=== PATIENT | female | born 1965 | race Asian ===

== ENCOUNTER 2016-07-08 13:36 | Observation (INO) | payer OTHER ==
[2016-07-08] VITALS (9 sets, daily range): BP systolic 139–211; BP diastolic 70–99; PULSE 75–84; RESP 16–22; O2SAT 97–100
[~2016-07-08] VITALS: Ht 144.8 cm; Wt 59.6 kg
--- NOTE | 2016-07-08 13:41 | ED.REPORT ---
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 She reports left side facial numbness and left leg weakness. Laborer Mine reports that the patient called her around 11:30, at which time she seemed confused. Upon her arrival at the patient's house, her son also endorsed confusion and they both convinced the patient to go immediately to the emergency room. Her friend took her BP prior to their departure, at which time it measured 180/110. On the way to the ER patient complained of dizziness, and a transient episode of chest tightness, though she admits that this has been occurring intermittently for the past week. Patient denies SOB, nausea, and vomiting. Nursing Notes Stated Complaint: HIGH BP/CHEST TIGHTNESS/NUMB ON LEFT SIDE FACE Nursing Notes Reviewed: Yes Allergies: Coded Allergies: No Known Allergies (Unverified Allergy, Unknown, 07/08/16) Scheduled Aspirin (Aspirin) 81 Mg Tablet 81 MG PO DAILY (Reported) Hydrochlorothiazide (Hydrochlorothiazide) 25 Mg Tablet 25 MG PO DAILY (Reported ) Metoprolol Succinate ER (Metoprolol Succinate ER) 25 Mg Tab.er.24h 25 MG PO HS ( Reported) Potassium Chloride (Potassium Chloride) 10 Meq Tab.er.prt 10 MEQ PO DAILY ( Reported) TAKE WITH FOOD General Time Seen by Provider: 13:41 Chief Complaint Weakness, Numbness, Confusion Left-sided, Face left, Leg left Hx Obtained From: Other family... (Friend) Arrived By: Walk-in Time last known well 11:30 today Sudden in Onset?: No Symptom Duration: Since onset Progression Since Onset: Rapidly improving Associated with: Denies: Nausea, Vomiting Pertinent Negative: Pt denies other symptoms Similar Sx Previous: No Risk Factors )( TPA Administration/Criteria Stroke Thrombolytic Therapy : TPA Considered: No Neurologist Contacted: Yes TPA Administered Intravenously: No, not indicated NIH Stroke Scale Level of Consciousness: Alert and responsive (0) Ask Month & Age: Both questions right (0) Open/Close Eyes/Hand Motor Grader Rough Grade: Performs both tasks (0) Horizontal EO Movements: None (0) Visual Cooper: No visual loss (0) Facial Palsy: Normal symmetry (0) Right Arm Motor Drift (10s): No drift 10 sec (0) Left Arm Motor Drift (10s): No drift 10 sec (0) Right Leg Motor Drift (5s): No drift 5 sec (0) Left Leg Motor Drift (5s): No drift 5 sec (0) Limb Ataxia FNF/Heel-Mejia: No ataxia (0) Sensation (Arms/Legs/Face): No sensory loss (0) Language Aphasia: No aphasia, normal (0) Dysarthria: No dysarthria, normal (0) Extinction/Inattention: No exctinct/inattent (0) NIHSS Score: 0 Time NIHSS Performed: 13:42 Date NIHSS Performed: July 08, 2016 Past Medical History Past Medical History Reports: Hypertension, Denies: Coronary artery disease, Hyperlipidemia Smoking History Never Smoker Social History Other Social History: Good social support Ambulatory Status Independent Review of Systems Respiratory: Denies: Non-productive cough, Shortness of breath Cardiovascular: Reports: Chest pain (Tightness) GI: Denies: Nausea, Vomiting Neurologic: Reports: Confusion, Focal weakness (Left Arm and Leg), Numbness ( Left Face), Denies: Change LOC, Headache, Slurred speech, Unable to speak, Vision change Complete sys rev & neg: except as marked. Physical Exam Initial Vital Signs Vital Signs (First) Date Time Temp Pulse Resp B/P Pulse Ox O2 Delivery O2 Flow Rate FiO2 07/08/16 13:47 75 16 211/94 100 Room Air 07/08/16 14:33 36.4 Initial VS: Reviewed Abdomen / GI: Soft, Non-tender, No guarding, No rebound, No distention Extremities: Vascular intact, Neuro intact, No swelling, No tenderness Skin: Warm, Dry, No cyanosis Psychiatric: Mood/affect normal, Behavior normal, Normal thought content General/Constitutional: Awake, Alert, Well developed, Well nourished Head / Eyes: Normocephalic, PERRL, EOMI Neck: Supple, Full range of motion, No swelling, Non-tender, No carotid bruit Respiratory / Chest: Breath sounds NL, Breath sounds = bilat, No respiratory distress, No rales, No rhonchi, No wheezing Cardiovascular: Heart rate NL, Regular rhythm, Heart sounds NL, Peripheral circulation NL Heart Sounds / Murmur: Positive: Murmur present... (holosystolic murmur left upper sternal border) Neurologic: Oriented X3, Speech NL, No motor deficits, No sensory deficits, CN II - XII intact See NIH Stroke Scale in the Risk section of this note. Interpretation & Diagnostics Lab Results Interpretation Result Diagram: 07/09/16 0415 07/10/16 0535 Test 07/08/16 14:00 07/08/16 14:15 07/08/16 14:26 Prothrombin Time 9.7sec (8.1-12.5) Prothromb Time International Ratio 0.91ratio Hold Poon Top Tube Received (Received) Urine Color Straw (YELLOW) Urine Appearance Hazy (CLEAR,HAZY) Urine pH 6.0 (5.0-8.0) Urine Specific [place] 1.005 (1.003-1.035) Urine Protein Negativemg/dL (NEG,TRACE) Urine Glucose (UA) Negativemg/dL (NEGATIVE) Urine Ketones Negativemg/dL (NEGATIVE) Urine Occult Blood Negative (NEGATIVE) Urine Nitrite Negative (NEGATIVE) Urine Bilirubin Negative (NEGATIVE) Urine Urobilinogen Normalmg/dL (NORMAL) Urine Leukocyte Esterase Negative (NEGATIVE) Urine RBC 0-2/hpf (0-2) Urine WBC 6-10/hpf (0-5) Urine Epithelial Cells Occasional/hpf (NONE-MOD) Urine Crystals None seen (NONE SEEN) Urine Bacteria Moderate/hpf (NONE-FEW) Urine Hyaline Casts None/lpf (NONE) Urine Granular Casts None seen (NONE SEEN) Urine Waxy Casts None seen (NONE SEEN) Urine Red Blood Cell Casts None seen (NONE SEEN) Urine White Blood Cell Casts None seen (NONE SEEN) Urine Mucus None seen (None Seen) Urine Trichomonas None seen (NONE SEEN) Urine Yeast None (NONE SEEN) Urinalysis Comment None Urine Culture Reflexed Indicated ECG Interpretation ECG Interpretation: Sinus rhythm, rate 82 T wave inversions in 3, avF Q waves in [address] depression in 2 Unchanged from previous Time: 14:16 Interpreted by: ED physician CT Head Interpretation IMPRESSION: 1. No acute intracranial abnormality. 2. Findings discussed with Dr. Sterling on 07.08.16 at 1359 hrs. This study fulfills neurological imaging criteria for inclusion or exclusion of acute stroke therapies based on available published neurological imaging guidelines. Dictated by: Jose Alejandro Wayne M.D. on 07/08/2016 at 13:57 Approved by: Jose Alejandro Wayne M.D. on 07/08/2016 at 14:01 Study: Head CT no contrast Interpretation / Wet Read by: Interpret - Radiologist Re-Eval/Medical Decision Med Decision/Clinical Course 60-year-old female history of hypertension presenting with left-sided chest pain, left facial numbness, left lower extremity weakness and confusion today. Code stroke was called on arrival. CT showed no hemorrhage. Her left facial numbness and left lower extremity weakness resolved almost immediately. I discussed with stroke neurology and thought not TPA candidate given likely not stroke. Blood pressure systolic was low 200s. All of these symptoms resolved. She did have some recurrent left-sided chest pain which resolved with nitroglycerin. Patient was admitted for chest pain ACS rule out and TIA-like symptoms. This all could be due to hypertensive emergency resolved. Re-Evaluation/Progress : Time of Eval: 14:39 Re-Evaluation/Progress Note: Patient's chest pain is resolved after NTG. Discussed resulted labs, and imaging results and need for admission. Patient is amenable to the plan. Return precautions given. All other questions addressed. Consultation #1: Referral / Consult Name: Julieth Hernandez MD Consulted With: Neurology Call Returned at: 14:07 Note: Agrees that CVA is unlikely. Patient is not a TPA candidate. Consultation #2: Referral / Consult Name: Mary Luna MD Consulted With: Cardiology Call Returned at: 14:42 Transmission Builder: Referred to other consult ([facility]) Consultation #3: Referral / Consult Name: Jorge Gamez MD Consulted With: Cardiology Call Returned at: 14:52 Note: Agrees to consult. Consultation #4: Referral / Consult Name: Jorge Gamez MD Consulted With: Cardiology Call Returned at: 15:07 Note: No ECG changes. Admit patient. Start heparin drip. If there is no troponin elveation throughout her hospitalization, perform echocardiogram and stress test. Counseled Regarding: Diagnosis, Lab results, Need for admission Patient Discharge & Departure Impression: Primary Impression: Chest pain Additional Impressions: UTI (urinary tract infection) Hypertensive emergency Altered mental status Left facial numbness Disposition: ADMITTED TO HOSPITAL Discharge Condition All VS Reviewed: Yes Condition: Stable Crit Care Except Billable Proc Time Spent: 30-74 minutes (47) Services Performed: Patient management by me, Time spent at bedside, Reviewing test results, Reviewing imaging, Discussing patient care, Documentation in record, Time with fam/surrogate Scribe Attestation Portions of this note were transcribed by Jolynn Carcamo. I, Dr. Sterling, personally performed the history, physical exam and medical decision-making; I reviewed and confirmed the accuracy of the information in the transcribed note. Signed by: Barbara Cortes, 07/08/2016 at 15:07 Keon Sterling MD July 08, 2016 13:41 JOLYNN CARCAMO July 08, 2016 13:50 Urine Hyaline Casts None/lpf (NONE) Urine Granular Casts None seen (NONE SEEN) Urine Waxy Casts None seen (NONE SEEN) Urine Red Blood Cell Casts None seen (NONE SEEN) Urine White Blood Cell Casts None seen (NONE SEEN) Urine Mucus None seen (None Seen) Urine Trichomonas None seen (NONE SEEN) Urine Yeast None (NONE SEEN) Urinalysis Comment None Urine Culture Reflexed Indicated ECG Interpretation ECG Interpretation: Sinus rhythm, rate 82 T wave inversions in 3, avF Q waves in [address] depression in 2 Unchanged from previous Time: 14:16 Interpreted by: ED physician CT Head Interpretation IMPRESSION: 1. No acute intracranial abnormality. 2. Findings discussed with Dr. Streling on 07.08.16 at 1359 hrs. This study fulfills neurological imaging criteria for inclusion or exclusion of acute stroke therapies based on available published neurological imaging guidelines. Dictated by: Jose Alejandro Wayne M.D. on 07/08/2016 at 13:57 Approved by: Jose Alejandro Wayne M.D. on 07/08/2016 at 14:01 Study: Head CT no contrast Interpretation / Wet Read by: Interpret - Radiologist Re-Eval/Medical Decision Re-Evaluation/Progress : Time of Eval: 14:39 Re-Evaluation/Progress Note: Patient's chest pain is resolved after NTG. Discussed resulted labs, and imaging results and need for admission. Patient is amenable to the plan. Return precautions given. All other questions addressed. Consultation #1: Referral / Consult Name: Julieth Hernandez MD Consulted With: Neurology Call Returned at: 14:07 Note: Agrees that CVA is unlikely. Patient is not a TPA candidate. Consultation #2: Referral / Consult Name: Mary Luna MD Consulted With: Cardiology Call Returned at: 14:42 Transmission Builder: Referred to other consult ([facility]) Consultation #3: Referral / Consult Name: Jorge Gamez MD Consulted With: Cardiology Call Returned at: 14:52 Note: Agrees to consult. Consultation #4: Referral / Consult Name: Jorge Gamez MD Consulted With: Cardiology Call Returned at: 15:07 Note: No ECG changes. Admit patient. Start heparin drip. If there is no troponin elveation throughout her hospitalization, perform echocardiogram and stress test. Counseled Regarding: Diagnosis, Lab results, Need for admission Patient Discharge & Departure Impression: Primary Impression: Chest pain Additional Impressions: UTI (urinary tract infection) Hypertensive emergency Altered mental status Left facial numbness Disposition: ADMITTED TO HOSPITAL Discharge Condition All VS Reviewed: Yes Condition: Stable Crit Care Except Billable Proc Time Spent: 30-74 minutes (47) Services Performed: Patient management by me, Time spent at bedside, Reviewing test results, Reviewing imaging, Discussing patient care, Documentation in record, Time with fam/surrogate Scribe Attestation Portions of this note were transcribed by Jolynn Carcamo. I, Dr. Sterling, personally performed the history, physical exam and medical decision-making; I reviewed and confirmed the accuracy of the information in the transcribed note. Signed by: Barbara Cortes, 07/08/2016 at 15:07 Keon Sterling MD July 08, 2016 13:41 JOLYNN CARCAMO July 08, 2016 13:50
[2016-07-08] MEDS ORDERED: HYDR25TA4 PO (14:01)
[2016-07-08] MEDS ORDERED: ASPI-973 PO (14:01)
[2016-07-08] MEDS ORDERED: POTA10TA38 PO (14:01)
[2016-07-08] MEDS ORDERED: METO25TA99 PO (14:01)
--- NOTE | 2016-07-08 14:02 | DRSVH ---
PROCEDURE: CT BRAIN (TPA) ([id number]) INDICATIONS: Stroke TECHNIQUE: Noncontrast 4.5 mm thick angled axial sections acquired from the foramen magnum to the vertex, with c oronal reformats. COMPARISON: None. FINDINGS: Image quality: Excellent. CSF spaces: Basal cisterns are patent. No extra-axial fluid collections. Ventricles are normal in size and shape. Brain: No midline shift. No intracranial masses or hemorrhage. Ro-white matter interface is norm al. Skull and face: Calvarium and visualized facial bones are intact, without suspicious lesions. Sinuses: Visualized sinuses and mastoids are clear. IMPRESSION: 1. No acute intracranial abnormality. 2. Findings discussed with Dr. Sterling on 07.08.16 at 1359 hrs. This study fulfills neurological imaging criteria for inclusion or exclusion of acute stroke therapie s based on available published neurological imaging guidelines. Dictated by: Jose Alejandro Wayne M.D. on 07/08/2016 at 13:57 Approved by: Jose Alejandro Wayne M.D. on 07/08/2016 at 14:01
[2016-07-08 14:10] LABS: BASOPHILS % (AUTO) 0.7 % (0-3); EOSINOPHILS % (AUTO) 2.4 % (0-5); MONOCYTES % (AUTO) 7.1 % (4-12); Mean Corpuscular Hemoglobin 29.4 pg (27.0-35.0); Mean Corpuscular Volume 83.6 fL (81-100); NEUTROPHILS % (AUTO) 49.7 % (40-74); Platelet Count 289 bil/L (150-400)
[2016-07-08 14:30] LABS: INR 0.91 ratio
[2016-07-08 14:40] LABS: APPEARANCE,URINE HAZY (CLEAR,HAZY); COLOR,URINE STRAW (YELLOW); OCCULT BLOOD,URINE NEGATIVE (NEGATIVE); UROBILINOGEN,URINE NORMAL (NORMAL)
[2016-07-08 14:40] LABS: TROPONIN T < 0.010 ug/L (0.0-0.011)
[2016-07-08] MEDS ORDERED: cefTRIAXone Inj 1,000 MG in Dextrose 5% Minibag Plus 50 ML IV ONE (14:55)
[2016-07-08] MEDS ORDERED: Heparin 5,000 Unit/mL Inj IVPUSH ONE (14:55)
[2016-07-08] MEDS ORDERED: Heparin 25K Unit/500mL 0.45 NS 25,000 UNIT in IV Premix 1 EACH IV ONE (14:55)
[2016-07-08] MEDS ORDERED: HEPARIN IV ONE (15:30)
[2016-07-08] MEDS ORDERED: SODIUM CHLORIDE 0.9% IV ONE (15:30)
[2016-07-08] MEDS ORDERED: Ondansetron 2 mg/mL 2 mL Inj IVPUSH PRN ×2 (15:40→16:30)
[2016-07-08] MEDS ORDERED: Heparin 25,000 UNIT in 0.45% Sodium Chloride 475 ML IV ONE (15:40)
[2016-07-08] MEDS ORDERED: Alum-Mag Hydrox-Simeth 30 mL Suspension PO PRN ×2 (15:40→16:30)
[2016-07-08] MEDS ORDERED: Polyethylene Glycol (PEG) 17 Gm Powder PO PRN (16:30)
--- NOTE | 2016-07-08 17:01 | NUR ---
Admit nurse note Admission assessment completed in the ER with assistance from . Pt. denies complaints presently. She states she had chest pressure, dizziness and L facial numbness which resolved with 1 nitroglycerine sublingually. Pt. was recently dx with htn and started meds only 1 week ago. She also c/o 2 months of coughing since a trip to the [facility]. NKA verified, Med history obtained based on med bottles. Report given to Ingris Lin.
[2016-07-08] MEDS ORDERED: Heparin 5,000 Unit/mL Inj IVPUSH PRN (17:25)
[2016-07-08] MEDS ORDERED: Heparin 25K Unit/500mL 0.45 NS 25,000 UNIT in IV Premix 1 EACH IV SCH (17:25)
--- NOTE | 2016-07-08 17:31 | NUR ---
Admit: Patient arrived from ER to [facility] @ 1715 via stretcher accompanied by friends and Admit RN. Alert & oriented, ambulated to BR, steady gait observed. Denies pain, nausea, states she is slightly lightheaded from laying down. Telemetry box #45 on, SR 74 per wind commissioning technician. Oriented to room and call light system, bed in low and locked position, bed rails up x2, non skid socks on for safety.
--- NOTE | 2016-07-08 19:20 | PCM.HPMED ---
Subjective Date of Service July 08, 2016 Primary Provider: Admitting Physician: Gilbert Cancino MD Primary Care Physician: Andriy Fong MD Attending Physician: Gilbert Cancino MD Chief Complaint: Chest pain and numbness of the left side of the face and left leg pain and/or weakness. History of Present Illness: The patient is a pleasant 50-year-old [place] female who began having symptoms 06/24/2016. She went to see Dr. Fong at the [facility] in [place] on . Patient's blood pressure at that time was 164/90. Patient was given metoprolol 25 mg by mouth every 24 hours at that time. Patient went grocery shopping next became dizzy and found that her blood pressure was 184/90. On 513 her blood pressure was 150/100. On 514 she was tired and was found that her blood pressure was 188/100 she then went to the [place] walk-in clinic and they found that her blood pressure was 190/100 tens EKG and blood tests and told her that she had not had a heart attack but told her to go the emergency room and showed the emergency room in [place] and her blood pressure was 204/ 100. Again they did blood tests and x-rays and they gave her a shot of hydralazine IV and her blood pressure went from 190 systolic to 162 systolic. Patient was given hydrochlorothiazide and was sent home to follow-up with her primary care physician. Patient followed up with her primary care physician and her blood pressure was okay. However yesterday she was resting at home so not working is taken the day of work off since 07/06/2015. Patient blood pressure was 168 yesterday and then today was systolic pressure was 173- 180. Her friend Margie is a nurse in [place] at [facility] after her Symptoms she was having and the patient stated she was having chest pain and tightness and dizziness. Patient friend Margie then drove her to [facility] emergency room were blood pressure was found to be 200/100. She complained of left-sided facial numbness and was thought to have left leg weakness. A "code stroke" was called and at that time all of her symptoms resolved. The stroke team at [facility] was contacted and they recommended no TPA therefore the patient was not given any TPA. Patient had an INH stroke scale performed at 1342 with the "code stroke" and the patient in H stroke score was 0.. Patient continued to have chest tightness and chest pain and she was given 1 sublingual nitroglycerin and this not only took care of her chest pain but her blood pressure normalized. An EKG was performed which showed some Q waves in II, III, and F aVF and T-wave inversion in II, III, and F aVF with questionable ST depression in lead [address] Keon Sterling. He reviewed the old EKG from November 2011 and found no significant difference. However, he also Sent the EKG from 2011 and recent EKG to Dr. Gamez, who Is the [employer] emission specialist and Dr. Gamez also agreed that there is no significant difference in comparing the old EKG with the new EKG. The patient had a negative troponin and all of her strokelike symptoms had resolved. Therefore, the patient was brought in under observation to the hospital service. Review of Systems: General: The patient is in no apparent distress. HEENT: Patient has no headache, patient has no diplopia, patient has no changes in vision. She wears glasses for reading Patient has no problems with her ears , nose or throat. Patient has upper and lower dentures and has had all of her teeth but removed. Patient has no pharyngitis or history of thrush. Patient's facial numbness has resolved. Neck: Patient has no stiffness in the neck. Patient has no lymphadenopathy. Patient has no other problems with their neck. Pulmonary: Patient has no shortness of breath, no cough, no expectoration of sputum. Patient has no pleurisy. Patient has no chest pain. Patient has no history of asthma or COPD. Cardiovascular: Patient has no chest pain since she took a few nitroglycerin in the emergency room. Please see the history of present illness. Patient has no history of heart murmur. Patient has no palpitations. Patient has no history of myocardial infarction. Patient has no history of coronary artery disease that she is aware of. Gastrointestinal: Patient has no history of hepatitis A, B or C. Patient has no history of peptic ulcer disease. Patient has no history of gastroesophageal reflux disease. Patient has no history of nausea, vomiting, or diarrhea. Patient has no history of hematemesis, hematochezia, or melena. Patient has no history of colitis. Renal: Patient has no history of kidney disease. No history of kidney stones. Genitourinary: Patient has no history of dysuria, frequency, or incontinence. Patient has no previous history of genitourinary problems. Musculoskeletal: Patient has no history of muscular skeletal problems. Neurologic: Patient has no history of stroke, no history of seizure, no history of TIA. Psychiatric: Patient has no history of psychiatric problems. The remainder of the entire review of systems was reviewed with patient and is as mentioned above otherwise negative. Allergies Coded Allergies: No Known Allergies (Unverified Allergy, Unknown, 07/08/16) Home Medications Scheduled Aspirin (Aspirin) 81 Mg Tablet 81 MG PO DAILY (Reported) Hydrochlorothiazide (Hydrochlorothiazide) 25 Mg Tablet 25 MG PO DAILY (Reported ) Metoprolol Succinate ER (Metoprolol Succinate ER) 25 Mg Tab.er.24h 25 MG PO DAILY (Reported) Potassium Chloride (Potassium Chloride) 10 Meq Tab.er.prt 10 MEQ PO DAILY ( Reported) TAKE WITH FOOD PMH Prior to June 24 she states she was perfectly healthy. Patient is 1 para 1 and was found to have 2 units of uterine tumors and underwent a hysterectomy. Patient had a urinary tract infection when she was and has not had one since. Surgical History Patient had a hysterectomy without complete removal of her ovaries but she is not certain what they did with her ovaries other than it was not a complete surgical procedure. She had this hysterectomy in 2008. She had all of her teeth except for two removed. Her two lower teeth are used for post for her lower dentures. She denies any other surgery. Family History Patient's father at the age of 59 from stomach cancer. The patient's mother before she turned 38 of unknown causes. The patient was only 3 years old at the time. Patient has 2 brothers who are healthy. Patient has 1 full sister who is healthy. The patient has 4 half-sisters who are healthy. Social History Hx Alcohol Use: No Hx Substance Use: No Smoking Status: Never Smoker Living Arrangement: with Family Spiritual Support Patient is a regular churchgoer. Additional Information The patient was born in the [facility] and moved to [facility] in 1995. Her N Roni and the got 21 years ago and have a son who is 19 years old. They live on [address]. 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 Her sells electronics. Her son is attending college and studying to be an road design engineer. Exam Vital Signs Vital Sign - Last Date Time Temp Pulse Resp B/P Pulse Ox O2 Delivery O2 Flow Rate FiO2 07/08/16 17:34 78 07/08/16 17:18 36.8 22 161/92 97 Room Air Exam General: Patient is in no apparent distress. HEENT: Head is atraumatic and normocephalic. Eyes: Pupils are equally round and reactive to light and accommodation. Extraocular muscles are intact. Sclera are white, anicteric. Subconjunctival mucosa is pink. Ears and nose are unremarkable. Oropharynx: There is no mucosal lesions, there is no thrush, there is no pharyngitis. Patient has upper and lower dentures. Neck: Is supple, there are no nodes, or masses or tenderness. Chest: Is clear to auscultation and percussion. There are no rales, rhonchi, wheezes or rubs. Heart: Rate, rhythm is regular. There is grade 1/6 systolic ejection murmur heard best at the left sternal border. There is no rub or gallop appreciated. Abdomen: Good bowel sounds are present. Abdomen is soft, nontender, no organomegaly or masses were appreciated. Extremities: Are symmetrical and well perfused. There is no edema, there is no cellulitis, no rash. Neurologic: There are no focal neurological deficits. Cranial nerves II through XII are intact. There are no sensory or motor deficits. Psychiatric: Patients mood is calm and shows no sign of agitation. Genital: Deferred Rectal: Deferred Lab and Diagnostics Result Diagram: 07/08/16 1400 07/08/16 1400 Microbiology Urine culture is pending X-Rays, CTs and MRIs PROCEDURE: CT BRAIN (TPA) ([id number]) INDICATIONS: Stroke TECHNIQUE: Noncontrast 4.5 mm thick angled axial sections acquired from the foramen magnum to the vertex, with coronal reformats. COMPARISON: None. FINDINGS: Image quality: Excellent. CSF spaces: Basal cisterns are patent. No extra-axial fluid collections. Ventricles are normal in size and shape. Brain: No midline shift. No intracranial masses or hemorrhage. Ro-white matter interface is normal. Skull and face: Calvarium and visualized facial bones are intact, without suspicious lesions. Sinuses: Visualized sinuses and mastoids are clear. IMPRESSION: 1. No acute intracranial abnormality. 2. Findings discussed with Dr. Sterling on 07.08.16 at 1359 hrs. This study fulfills neurological imaging criteria for inclusion or exclusion of acute stroke therapies based on available published neurological imaging guidelines. Dictated by: Jose Alejandro Wayne M.D. on 07/08/2016 at 13:57 Approved by: Jose Alejandro Wayne M.D. on 07/08/2016 at 14:01 Assessment & Plan The patient is a pleasant 50-year-old [place] female who began having symptoms 06/24/2016. She went to see Dr. Fong at the [facility] in [place] on . Patient's blood pressure at that time was 164/90. Patient was given metoprolol 25 mg by mouth every 24 hours at that time. Patient went grocery shopping next became dizzy and found that her blood pressure was 184/90. On 513 her blood pressure was 150/100. On 514 she was tired and was found that her blood pressure was 188/100 she then went to the [place] walk-in clinic and they found that her blood pressure was 190/100 tens EKG and blood tests and told her that she had not had a heart attack but told her to go the emergency room and showed the emergency room in [place] and her blood pressure was 204/ 100. Again they did blood tests and x-rays and they gave her a shot of hydralazine IV and her blood pressure went from 190 systolic to 162 systolic. Patient was given hydrochlorothiazide and was sent home to follow-up with her primary care physician. Patient followed up with her primary care physician and her blood pressure was okay. However yesterday she was resting at home so not working is taken the day of work off since 07/06/2015. Patient blood pressure was 168 yesterday and then today was systolic pressure was 173- 180. Her friend Margie is a nurse in [place] at [facility] after her Symptoms she was having and the patient stated she was having chest pain and tightness and dizziness. Patient friend Margie then drove her to [facility] emergency room were blood pressure was found to be 200/100. She complained of left-sided facial numbness and was thought to have left leg weakness. A "code stroke" was called and at that time all of her symptoms resolved. The stroke team at [facility] was contacted and they recommended no TPA therefore the patient was not given any TPA. Patient had an INH stroke scale performed at 1342 with the "code stroke" and the patient in H stroke score was 0.. Patient continued to have chest tightness and chest pain and she was given 1 sublingual nitroglycerin and this not only took care of her chest pain but her blood pressure normalized. An EKG was performed which showed some Q waves in II, III, and F aVF and T-wave inversion in II, III, and F aVF with questionable ST depression in lead [address] Keon Sterling. He reviewed the old EKG from November 2011 and found no significant difference. However, he also Sent the EKG from 2011 and recent EKG to Dr. Gamez, who Is the [employer] emission specialist and Dr. Gamez also agreed that there is no significant difference in comparing the old EKG with the new EKG. The patient had a negative troponin and all of her strokelike symptoms had resolved. Therefore, the patient was brought in under observation to the hospital service. # Chest pain - Patient has EKG changes that appear to be present since November 2011. However , there does appear to be Q waves in inferior leads and inverted T waves in inferior leads. There also appears to be flattening of the T waves in the lateral leads. - Rule out Acute coronary syndrome - Rule out angina secondary to hypertension - Rule out atypical chest pain - I discussed case with Dr. Gamez who reviewed the case with the emergency room physician and recommend continuing the IV heparin drip and trending serial troponins. If the troponins are negative he recommended discontinuing the heparin drip and ordering a stress test. He also recommended checking an echocardiogram in the meantime and if there are any other abnormalities to contact cardiology for formal consultation. His expertise is appreciated and will follow his recommendations. # Left-sided facial numbness and possible left leg weakness, present at the time of admission, resolved. - Possibly due to hypertensive urgency with TIA-like symptoms - Rule out CVA or reversible ischemic neurologic deficit - Rule out other such as unusual reaction to urinary tract infection - We will continue her home baby aspirin daily and patient is currently on a heparin drip as well. - We will check MR stroke protocol of the brain. - We will check carotid Dopplers. - Check lipid profile. - We will consider addition of a statin to her drug regimen. # Hypertensive urgency, present at the time of admission, active - Patient has had uncontrolled blood pressure since June 24 of this month this despite the addition of metoprolol and hydrochlorothiazide. - We will continue metoprolol and hydrochlorothiazide and closely monitor her blood pressure and add additional control measures as needed. # Urinary tract infection, present at the time of admission. Active - Rocephin was started in the emergency room and will continue. - Check urine culture results and tailor antibiotic treatment accordingly. Disposition: Patient will be brought in under 23 hour observation initially for further evaluation and treatment Pain Evaluation: Adequate Pain Control GI Prophylaxis: Proton Pump Inhibitor VTE Prophylaxis: Other (The patient is currently on a heparin drip.) Resuscitation Status: CPR: Attempt Resuscitation Gilbert Cancino MD July 08, 2016 19:20
[2016-07-08] MEDS: MeTOProlol XL 25 mg ER24 Tablet PO SCH (20:04)
[2016-07-09] VITALS (8 sets, daily range): BP systolic 133–173; BP diastolic 79–94; PULSE 71–78; RESP 18–22; O2SAT 94–97
[2016-07-09 04:24] LABS: BASOPHILS % (AUTO) 0.3 % (0-3); MONOCYTES % (AUTO) 6.2 % (4-12); Mean Corpuscular Volume 83.1 fL (81-100); NEUTROPHILS % (AUTO) 62.1 % (40-74); Platelet Count 250 bil/L (150-400)
[2016-07-09 05:02] LABS: TROPONIN T 0.01 ug/L (0.0-0.011)
[2016-07-09 05:14] LABS: Magnesium 1.9 mg/dL (1.6-2.6)
[2016-07-09] MEDS ORDERED: cefTRIAXone Inj 2,000 MG in Dextrose 5% Minibag Plus 50 ML IV SCH (08:30)
--- NOTE | 2016-07-09 08:43 | NUR ---
Social Work: Screening Data: Pt is a 50 y/o female admitted for chest pain. Pt's PCP is Dr Fong, pt's insurance is [facility]. EMR reviewed. Readmit score is 0. No d/c planning needs anticipated at this time. GAGE MAKER will continue to follow if needs arise. Assessment: Pt who is independent at baseline. Plan: Pt will d/c home via POV when medically stable. No d/c planning needs anticipated at this time. GAGE MAKER will continue to follow if needs arise. AKHIL Menon
[2016-07-09] MEDS ORDERED: 0.9% Sodium Chloride 250 ML ONE (08:47)
[2016-07-09] MEDS: Pantoprazole 40 mg ER24 Tablet PO SCH (08:59)
--- NOTE | 2016-07-09 09:14 | NUR ---
Evaluation completed. Please go to "Notes" then click on "Assessments and Notes" (bottom left corner of screen). Then select appropriate discipline tab on top of screen.
--- NOTE | 2016-07-09 10:12 | DRSVH ---
PROCEDURE: US BILATERAL DUPLEX DOPPLER IMAGING OF THE CAROTIDS ([id number]) INDICATIONS: TIA vs CVA TECHNIQUE: Color and pulse Doppler interrogation was performed of both carotid systems, with image documentation and velocity measurements. COMPARISON: None. FINDINGS: All stenosis calculations are based on NASCET criteria. Right side: Brachial blood pressure: n.a. Common Carotid Artery(Distal) PSV: 64 cm/s Internal Carotid Artery PSV- Proximal: 49.40 cm/s Mid-lon.80 cm/s Distal: 62.70 cm/s EDV - Proximal: 19.10 cm/s Mid-lon.60 cm/s Distal: 24.50 cm/s External Carotid Artery(Proximal) PSV: 62.50 cm/s ICA/CCA PSV ratio: 0.8 Ro scale imaging description: Normal Percent internal carotid artery stenosis: No significant stenosis. Vertebral artery: Not visualized. Left side: Brachial blood pressure: 173/94 mm Hg. Common Carotid Artery(Distal) PSV: 60.80 cm/s Internal Carotid Artery PSV - Proximal: 46.30 cm/s Mid-lon.70 cm/s Distal: 63.70 cm/s EDV - Proximal: 15.70 cm/s Mid-lon cm/s Distal: 27.40 cm/s External Carotid Artery(Proximal) PSV: 52.10 cm/s ICA/CCA PSV ratio: 1.05 Ro scale imaging description: Normal Percent internal carotid artery stenosis: No significant stenosis. Vertebral artery: Not visualized. IMPRESSION: 1. Normal carotid ultrasound exam bilaterally. 2. Nonvisualization of vertebral arteries. 3. Elevated left brachial blood pressure. The right brachial blood pressure cannot be obtained becaus e of an IV line. Dictated by: Dee Mercado M.D. on 07/09/2016 at 10:08 Approved by: Dee Mercado M.D. on 07/09/2016 at 10:11
--- NOTE | 2016-07-09 10:50 | NUR ---
Evaluation completed. Please go to "Notes" then click on "Assessments and Notes" (bottom left corner of screen). Then select appropriate discipline tab on top of screen.
--- NOTE | 2016-07-09 13:52 | DRSVH ---
PROCEDURE: X-RAY CHEST, TWO VIEWS ([id number]) INDICATIONS: Chest Pain and TIA Possible aspiration TECHNIQUE: 2 views of the chest were acquired. COMPARISON: [facility], , CHEST 1VW (PORTABLE), 12/01/2011, 12:55. FINDINGS: Surgical changes and devices: None. Lungs and pleura: No pleural effusions or pneumothorax. Lungs are clear. Mediastinum: Mediastinal contours are normal. Heart size is normal. Bones and chest wall: No suspicious bony abnormalities. Soft tissues appear unremarkable. IMPRESSION: No acute cardiopulmonary disease. Dictated by: Talib Lima [facility] Interpreted: Hortensia To MD on 07/09/2016 at 13:52 Transcribed by: TRACI on 07/09/2016 at 13:52 Approved by: Hortensia To MD, PhD on 07/09/2016 at 15:24
--- NOTE | 2016-07-09 14:06 | DRSVH ---
PROCEDURE: MRI STROKE PROTOCOL ([id number]) Pre- and post-contrast brain MRI, non-contrast brain MR angiogram, pre- and postcontrast neck MR neema ogram INDICATIONS: Left facial numbness, left leg pain and weakness. TECHNIQUE: Brain: Noncontrast axial T1 spin echo, axial T2 fast spin echo, sagittal and axial FLAIR, coronal T2 fast spin echo, axial gradient echo, axial diffusion and ADC through the brain. After the administr ation of contrast, axial 3D VIBE of the cranial vasculature and brain. Brain MRA: Non-contrast 3-D time of flight MR angiogram, with multiple ggvrpws-tvmcgbkmp-gplhpufyhs (MIP) reformats performed. Neck MRA: Axial and sagittal TruFISP through the neck. Coronal dynamic MR angiogram during administ ration of contrast in the arterial and venous phases, with 3-dimenstional ksubcnv-zcludouzq-lbsxsmunl n (MIP) reformats constructed from subtraction images. COMPARISON: [facility], CT, BRAIN (TPA), 07/08/2016, 13:53. FINDINGS: Image quality: Limited by motion artifact. BRAIN: CSF spaces: Ventricles are normal in size and shape. Basal cisterns are patent. No extra-axial flu id collections. Brain: No intracranial bleeds or mass effects. Small, subependymal nodules noted in the lateral vent ricles bilaterally. Some ependymal nodules have isointense signal on the T1 and T2-weighted images. N o postcontrast enhancement is associated with the lateral ventricle subependymal nodules. No suscepti bility weighted abnormality associated with the subependymal nodules. 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 Ro-white matter interface is normal. Diffusion we ighted images show no acute ischemic insults. Brainstem appears normal. Normal intravascular flow v oids are present. No abnormal intracranial enhancement. Skull and face: Calvarial marrow signal is normal. Orbits appear normal. Sinuses: Sinuses and mastoids are clear. BRAIN MR ANGIOGRAM: Anterior circulation: Intracranial internal carotid arteries are normal in size and enhancement. Th e flow within the paired anterior cerebral arteries is normal and symmetric. The flow within the mid dle cerebral arteries is normal and symmetric. The anterior communicating artery is seen. No stenos es, occlusions, or aneurysms. Posterior circulation: The visualized portions of the vertebral arteries demonstrate normal caliber, and join to form a normal appearing basilar artery. The flow within the posterior cerebral arteries is normal and symmetric. No stenoses, occlusions, or aneurysms. NECK MR ANGIOGRAM: Carotids: Great vessels demonstrate a conventional anatomy as they arise from the aortic arch. The origins of the common carotid arteries appear patent. The calibers and courses of both common caroti d arteries are normal. The bifurcation regions appear normal bilaterally. The internal carotid debbie rosina demonstrate normal course and caliber. Posterior circulation: The origins of the vertebral arteries appear patent. More superior portions of both vertebral arteries demonstrate normal course and caliber, and join to form a normal appearing basilar artery. Miscellaneous: Subclavian arteries appear patent. Pre-contrast images through the neck show no soft tissue abnormalities. IMPRESSION: BRAIN MRI: 1. No acute intracranial disease process. 2. No areas of acute or chronic infarction. 3. A few, small, scattered, lateral ventricle subependymal nodules with imaging characteristics most compatible with focal, bilateral, periventricular nodular heterotopia. 4. No abnormal intracranial postcontrast enhancement. BRAIN MR ANGIOGRAM: Negative examination. NECK MR ANGIOGRAM: Negative examination. The estimate of stenosis included in the report of the imaging study was calculated using the NASCET method Dictated by: Hortensia To MD, PhD on 07/09/2016 at 13:48 Approved by: Hortensia To MD, PhD on 07/09/2016 at 14:05
[2016-07-09] MEDS: MeTOProlol XL 25 mg ER24 Tablet PO SCH (21:03)
--- NOTE | 2016-07-09 22:55 | PCM.PNMED ---
Subjective Date of Service July 09, 2016 Subjective Patient is feeling better no longer has left-sided facial numbness or left leg weakness. Patient states that she remembers now in the emergency room failing to be a little hold her left leg up for 10 seconds. She states that she was able to do that today without any difficulty. The patient has no new complaints. She no longer has any chest discomfort Exam Vital Signs Vital Sign - Last Date Time Temp Pulse Resp B/P Pulse Ox O2 Delivery O2 Flow Rate FiO2 07/09/16 20:29 37.1 73 18 158/85 96 Room Air Intake and Output 07/08/16 07/08/16 07/09/16 Cumulative From/Thru 15:00 23:00 07:00 07/08/16 13:47 - 07/09/16 06:52 Intake Total 1000 ml 100 ml 1100 ml Output Total 530 ml 800 ml 1330 ml Balance 470 ml -700 ml -230 ml Intake Oral 0 ml 100 ml 100 ml IV Total 1000 ml 1000 ml Output Urine Total 530 ml 800 ml 1330 ml # Bowel Movements 0 0 Exam General: Patient is in no apparent distress. HEENT: Head is atraumatic and normocephalic. Eyes: Pupils are equally round and reactive to light and accommodation. Extraocular muscles are intact. Sclera are white, anicteric. Subconjunctival mucosa is pink. Ears and nose are unremarkable. Oropharynx: There is no mucosal lesions, there is no thrush, there is no pharyngitis. Patient has upper and lower dentures. Neck: Is supple, there are no nodes, or masses or tenderness. Chest: Is clear to auscultation and percussion. There are no rales, rhonchi, wheezes or rubs. Heart: Rate, rhythm is regular. There is grade 1/6 systolic ejection murmur heard best at the left sternal border. There is no rub or gallop appreciated. Abdomen: Good bowel sounds are present. Abdomen is soft, nontender, no organomegaly or masses were appreciated. Extremities: Are symmetrical and well perfused. There is no edema, there is no cellulitis, no rash. Neurologic: There are no focal neurological deficits. Cranial nerves II through XII are intact. There are no sensory or motor deficits. Psychiatric: Patients mood is calm and shows no sign of agitation. Genital: Deferred Rectal: Deferred Lab and Diagnostics Result Diagram: 07/09/16 0415 07/09/165 Microbiology Urine culture is pending X-Rays, CTs and MRIs PROCEDURE: CT BRAIN (TPA) ([id number]) INDICATIONS: Stroke TECHNIQUE: Noncontrast 4.5 mm thick angled axial sections acquired from the foramen magnum to the vertex, with coronal reformats. COMPARISON: None. FINDINGS: Image quality: Excellent. CSF spaces: Basal cisterns are patent. No extra-axial fluid collections. Ventricles are normal in size and shape. Brain: No midline shift. No intracranial masses or hemorrhage. Ro-white matter interface is normal. Skull and face: Calvarium and visualized facial bones are intact, without suspicious lesions. Sinuses: Visualized sinuses and mastoids are clear. IMPRESSION: 1. No acute intracranial abnormality. 2. Findings discussed with Dr. Sterling on 07.08.16 at 1359 hrs. This study fulfills neurological imaging criteria for inclusion or exclusion of acute stroke therapies based on available published neurological imaging guidelines. Dictated by: Jose Alejandro Wayne M.D. on 07/08/2016 at 13:57 Approved by: Jose Alejandro Wayne M.D. on 07/08/2016 at 14:01 PROCEDURE: X-RAY CHEST, TWO VIEWS ([id number]) INDICATIONS: Chest Pain and TIA Possible aspiration TECHNIQUE: 2 views of the chest were acquired. COMPARISON: [facility], , CHEST 1VW (PORTABLE), 12/01/2011, 12: 55. FINDINGS: Surgical changes and devices: None. Lungs and pleura: No pleural effusions or pneumothorax. Lungs are clear. Mediastinum: Mediastinal contours are normal. Heart size is normal. Bones and chest wall: No suspicious bony abnormalities. Soft tissues appear unremarkable. IMPRESSION: No acute cardiopulmonary disease. Dictated by: Talib WILDER Interpreted: Hortensia To MD on 07/09/2016 at 13:52 Transcribed by: TRACI on 07/09/2016 at 13:52 Approved by: Hortensia To MD, PhD on 07/09/2016 at 15:24 PROCEDURE: MRI STROKE PROTOCOL ([id number]) Pre- and post-contrast brain MRI, non-contrast brain MR angiogram, pre- and postcontrast neck MR angiogram INDICATIONS: Left facial numbness, left leg pain and weakness. TECHNIQUE: Brain: Noncontrast axial T1 spin echo, axial T2 fast spin echo, sagittal and axial FLAIR, coronal T2 fast spin echo, axial gradient echo, axial diffusion and ADC through the brain. After the administration of contrast, axial 3D VIBE of the cranial vasculature and brain. Brain MRA: Non-contrast 3-D time of flight MR angiogram, with multiple maximum- intensity-projection (MIP) reformats performed. Neck MRA: Axial and sagittal TruFISP through the neck. Coronal dynamic MR angiogram during administration of contrast in the arterial and venous phases, with 3-dimenstional rqpimpt-birsfdwcq-ffhrprttic (MIP) reformats constructed from subtraction images. COMPARISON: [facility], CT, BRAIN (TPA), 07/08/2016, 13:53. FINDINGS: Image quality: Limited by motion artifact. BRAIN: CSF spaces: Ventricles are normal in size and shape. Basal cisterns are patent. No extra-axial fluid collections. Brain: No intracranial bleeds or mass effects. Small, subependymal nodules noted in the lateral ventricles bilaterally. Some ependymal nodules have isointense signal on the T1 and T2-weighted images. No postcontrast enhancement is associated with the lateral ventricle subependymal nodules. No susceptibility weighted abnormality associated with the subependymal nodules. 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 Ro-white matter interface is normal. Diffusion weighted images show no acute ischemic insults. Brainstem appears normal. Normal intravascular flow voids are present. No abnormal intracranial enhancement. Skull and face: Calvarial marrow signal is normal. Orbits appear normal. Sinuses: Sinuses and mastoids are clear. BRAIN MR ANGIOGRAM: Anterior circulation: Intracranial internal carotid arteries are normal in size and enhancement. The flow within the paired anterior cerebral arteries is normal and symmetric. The flow within the middle cerebral arteries is normal and symmetric. The anterior communicating artery is seen. No stenoses, occlusions, or aneurysms. Posterior circulation: The visualized portions of the vertebral arteries demonstrate normal caliber, and join to form a normal appearing basilar artery. The flow within the posterior cerebral arteries is normal and symmetric. No stenoses, occlusions, or aneurysms. NECK MR ANGIOGRAM: Carotids: Great vessels demonstrate a conventional anatomy as they arise from the aortic arch. The origins of the common carotid arteries appear patent. The calibers and courses of both common carotid arteries are normal. The bifurcation regions appear normal bilaterally. The internal carotid arteries demonstrate normal course and caliber. Posterior circulation: The origins of the vertebral arteries appear patent. More superior portions of both vertebral arteries demonstrate normal course and caliber, and join to form a normal appearing basilar artery. Miscellaneous: Subclavian arteries appear patent. Pre-contrast images through the neck show no soft tissue abnormalities. IMPRESSION: BRAIN MRI: 1. No acute intracranial disease process. 2. No areas of acute or chronic infarction. 3. A few, small, scattered, lateral ventricle subependymal nodules with imaging characteristics most compatible with focal, bilateral, periventricular nodular heterotopia. 4. No abnormal intracranial postcontrast enhancement. BRAIN MR ANGIOGRAM: Negative examination. NECK MR ANGIOGRAM: Negative examination. The estimate of stenosis included in the report of the imaging study was calculated using the NASCET method Dictated by: Hortensia To MD, PhD on 07/09/2016 at 13:48 Approved by: Hortensia To MD, PhD on 07/09/2016 at 14:05 Bilateral carotid Dopplers were done and showed: IMPRESSION: 1. Normal carotid ultrasound exam bilaterally. 2. Nonvisualization of vertebral arteries. 3. Elevated left brachial blood pressure. The right brachial blood pressure cannot be obtained because of an IV line. Dictated by: Dee Mercado M.D. on 07/09/2016 at 10:08 Approved by: Dee Mercado M.D. on 07/09/2016 at 10:11 Assessment & Plan The patient is a pleasant 50-year-old Citizen Of [place] female who began having symptoms 06/24/2016. She went to see Dr. Fong at the [facility] in [place] on . Patient's blood pressure at that time was 164/90. Patient was given metoprolol 25 mg by mouth every 24 hours at that time. Patient went grocery shopping next became dizzy and found that her blood pressure was 184/90. On 513 her blood pressure was 150/100. On 514 she was tired and was found that her blood pressure was 188/100 she then went to the [facility] and they found that her blood pressure was 190/100 tens EKG and blood tests and told her that she had not had a heart attack but told her to go the emergency room and showed the emergency room in [place] and her blood pressure was 204/ 100. Again they did blood tests and x-rays and they gave her a shot of hydralazine IV and her blood pressure went from 190 systolic to 162 systolic. Patient was given hydrochlorothiazide and was sent home to follow-up with her primary care physician. Patient followed up with her primary care physician and her blood pressure was okay. However yesterday she was resting at home so not working is taken the day of work off since 07/06/2015. Patient blood pressure was 168 yesterday and then today was systolic pressure was 173- 180. Her friend Margie is a nurse in [place] at [facility] after her Symptoms she was having and the patient stated she was having chest pain and tightness and dizziness. Patient friend Margie then drove her to [facility] emergency room were blood pressure was found to be 200/100. She complained of left-sided facial numbness and was thought to have left leg weakness. A "code stroke" was called and at that time all of her symptoms resolved. The stroke team at [facility] was contacted and they recommended no TPA therefore the patient was not given any TPA. Patient had an INH stroke scale performed at 1342 with the "code stroke" and the patient in H stroke score was 0.. Patient continued to have chest tightness and chest pain and she was given 1 sublingual nitroglycerin and this not only took care of her chest pain but her blood pressure normalized. An EKG was performed which showed some Q waves in II, III, and F aVF and T-wave inversion in II, III, and F aVF with questionable ST depression in lead [address] Keon Sterling. He reviewed the old EKG from November 2011 and found no significant difference. However, he also Sent the EKG from 2011 and recent EKG to Dr. Gamez, who Is the [employer] information technology project manager and Dr. Gamez also agreed that there is no significant difference in comparing the old EKG with the new EKG. The patient had a negative troponin and all of her strokelike symptoms had resolved. Therefore, the patient was brought in under observation to the hospital service. # Chest pain - Patient has EKG changes that appear to be present since November 2011. However , there does appear to be Q waves in inferior leads and inverted T waves in inferior leads. There also appears to be flattening of the T waves in the lateral leads. - Acute coronary syndrome has been ruled out - Rule out angina secondary to hypertension - Rule out atypical chest pain - We will discontinue IV heparin drip. We are awaiting results of echocardiogram and likely patient will need to have a stress test in a.m. # Left-sided facial numbness and possible left leg weakness, present at the time of admission, resolved. - Possibly due to hypertensive urgency with TIA-like symptoms - Rule out CVA or reversible ischemic neurologic deficit - Rule out other such as unusual reaction to urinary tract infection - We will continue her home baby aspirin daily and patient is currently on a heparin drip as well. - MR stroke protocol of the brain fails to reveal cause of patient's current symptoms. - The carotid Dopplers were unremarkable. - Check lipid profile pending. - We will add a statin to the patient drug regimen. # Hypertensive urgency, present at the time of admission, active and now controlled - Patient has had uncontrolled blood pressure since June 24 of this month this despite the addition of metoprolol and hydrochlorothiazide. - We will continue metoprolol and hydrochlorothiazide and closely monitor her blood pressure and add additional control measures as needed. # Urinary tract infection, present at the time of admission. Active secondary to beta strep - Rocephin was started in the emergency room and will change to oral amoxicillin 500 mg by mouth 3 times a day. Disposition: Patient will be here another evening awaiting echocardiogram results. Pain Evaluation: Adequate Pain Control GI Prophylaxis: Proton Pump Inhibitor VTE Prophylaxis: Other (The patient is currently on a heparin drip.) Resuscitation Status: CPR: Attempt Resuscitation AlbertaGilbert MD July 09, 2016 22:55
[2016-07-10] VITALS (8 sets, daily range): BP systolic 119–137; BP diastolic 71–83; PULSE 65–86; RESP 18–20; O2SAT 95–98
[2016-07-10] MEDS: Pantoprazole 40 mg ER24 Tablet PO SCH (08:55)
--- NOTE | 2016-07-10 13:35 | DRSVH ---
[facility] [address] [place] [address] Echocardiogram Report Name: GENARO GALINDO MStudy Date: 07/10/2016 Height: 57 in Hospital Exam Location: [facility] Weight: 132 lb Gender: Female BSA: 1.5 m2 : 1965 Age: 50 yrs BP: 126/82 mmHg Reason For Study: CHEST PAIN, TIA Ordering Physician: Performed By: Pina Hager Referring Physician: DEISY EDGAR Interpretation Summary The left ventricle is normal in size, wall thickness, and systolic function without any focal wall motion abnormalities. Assessment of diastolic parameters indicates a relaxation abnormality of the left ventricle, consistent with normal filling pressures. The right ventricle is normal in size and function. Right ventricular systolic pressure is estimated to be 17 mmHg plus the clinically estimated CVP which cannot be estimated on this exam. Both atria are normal in size. There is no Doppler evidence for an atrial septal defect. Injection of contrast documented no interatrial shunt. There is mild aortic regurgitation. There is no other significant valvular heart disease. The aortic root is normal size. Procedure: A two-dimensional transthoracic echocardiogram with color flow and Doppler was performed. The study quality was technically adequate. The subcostal views were difficult to obtain and are suboptimal in quality. A saline contrast injection was performed to assess for cardiac shunting. The injection was performed through an intravenous line in the right arm. There is no prior echocardiogram noted for this patient. The patient was in normal sinus rhythm during the exam. Left Ventricle: The left ventricle is normal in size, wall thickness, and systolic function without any focal wall motion abnormalities. The ejection fraction is estimated to be 60-65%. Assessment of diastolic parameters indicates a relaxation abnormality of the left ventricle, consistent with normal filling pressures. Right Ventricle: The right ventricle is normal in size and function. Atria: Both atria are normal in size. There is no Doppler evidence for an atrial septal defect. Injection of contrast documented no interatrial shunt. Mitral Valve: The mitral valve leaflets appear normal. There is no evidence of stenosis, fluttering, or prolapse. There is no mitral regurgitation noted. Aortic Valve: The aortic valve is trileaflet. The aortic valve opens well. There is mild aortic regurgitation. Tricuspid Valve: The tricuspid valve leaflets are thin and pliable. There is a trace or physiologic amount of tricuspid regurgitation. Right ventricular systolic pressure is estimated to be 17 mmHg plus the clinically estimated CVP which cannot be estimated on this exam. Pulmonic Valve: The pulmonic valve is not well visualized. There is no pulmonic valvular regurgitation. There is no other significant valvular heart disease. Great Vessels: The aortic root is normal size. The pulmonary artery is normal size. The IVC has a measurement of 21 mm. Pericardium/ Pleura There is no pericardial effusion. There is no pleural effusion. MMode/2D Measurements & Calculations LVIDd: 4.0 cm LA dimension: 2.8 cm RA long axis LVOT diam: 1.9 cm LVIDs: 2.9 cm AoV Opening FS: 27.0 % LA A2 area: 16.0 cm RA area EPSS: 0.72 cm LA A4 area: 12.3 cm Ao root diam IVSd: 1.1 cm LA length (vol) : 10.9 cm LVPWd: 0.92 cm RA vol Ao Arch Diam (Prox LA vol: 40.1 ml : 22.6 ml Trans): 2.9 cm LA vol index RA : 15.0 mm2 IVC diam: 2.1 cm LV stevenson. diameter/BSA LV sys. diameter/BSA (cm/m^2): 2.7 (cm/m^2): 1.9 Doppler Measurements & Calculations Ao V2 max MV E max armando MV E/A: 0.80 TR max armando : 190.9 cm/sec : 86.1 cm/sec Med Peak E' Armando : 204.8 cm/sec Ao max PG MV A max armando TR max PG : 14.6 mmHg : 108.0 cm/sec E/E' med: 17.4 : 16.8 mmHg Ao mean PG MV P1/2t: 60.8 msec Lat Peak E' Armando PA V2 max : 98.0 cm/sec LVOT Max Armando E/E' lat: 11.4 PA mean PG : 96.7 cm/sec E/e' average: 14.4 Pulm A Revs Dur PA Accel Time MARISOL(I,D): 1.5 cm : 0.13 sec sev ratio MV A dur: 0.14 sec AI P1/2t : 759.8 msec AI dec slope : 162.5 cm/s2c MV dec time MV P1/2t max armando Ao V2 mean LV V1 max PG : 0.21 sec : 131.0 cm/sec MVA(P1/2t): 3.6 cm2 Ao V2 VTI: 33.4 cm LV V1 VTI MARISOL(V,D): 1.4 cm2 : 18.4 cm PA V2 mean MARISOL indexed to BSA Pulm A Revs Dur - MV : 66.9 cm/sec (cm^2/m^2): 1.0 A Dur: -0.07 msec Reading Physician:LEDA
--- NOTE | 2016-07-10 16:06 | NUR ---
Angina Booklet and Teaching Pt has had no c/o CP or SOB all shift but questions about Angina; Angina booklet given with teaching at the [facility] today.
[2016-07-10] MEDS: MeTOProlol XL 25 mg ER24 Tablet PO SCH (20:45)
--- NOTE | 2016-07-10 21:27 | PCM.PNMED ---
Subjective Date of Service July 10, 2016 Subjective Patient is feeling okay. She has no further chest pain. No further facial numbness or left leg weakness. She has no other new complaints. Exam Vital Signs Vital Sign - Last Date Time Temp Pulse Resp B/P Pulse Ox O2 Delivery O2 Flow Rate FiO2 07/10/16 20:08 37.1 80 20 137/83 96 Room Air Intake and Output 07/09/16 07/09/16 07/10/16 Cumulative From/Thru 15:00 23:00 07:00 07/08/16 13:47 - 07/10/16 05:40 Intake Total 1693 ml 300 ml 3093 ml Output Total 1300 ml 1 ml 2631 ml Balance 393 ml 299 ml 462 ml Intake Oral 1693 ml 300 ml 2093 ml IV Total 1000 ml Output Urine Total 1300 ml 1 ml 2631 ml # Bowel Movements 0 Exam General: Patient is in no apparent distress. She is comfortable lying supine in bed. HEENT: Head is atraumatic and normocephalic. Eyes: Pupils are equally round and reactive to light and accommodation. Extraocular muscles are intact. Sclera are white, anicteric. Subconjunctival mucosa is pink. Ears and nose are unremarkable. Oropharynx: There is no mucosal lesions, there is no thrush, there is no pharyngitis. Patient has upper and lower dentures. Neck: Is supple, there are no nodes, or masses or tenderness. Chest: Is clear to auscultation and percussion. There are no rales, rhonchi, wheezes or rubs. Heart: Rate, rhythm is regular. There is grade 1/6 systolic ejection murmur heard best at the left sternal border. There is no rub or gallop appreciated. Abdomen: Good bowel sounds are present. Abdomen is soft, nontender, no organomegaly or masses were appreciated. Extremities: Are symmetrical and well perfused. There is no edema, there is no cellulitis, no rash. Neurologic: There are no focal neurological deficits. Cranial nerves II through XII are intact. There are no sensory or motor deficits. Psychiatric: Patients mood is calm and she shows no sign of agitation. Genital: Deferred Rectal: Deferred Lab and Diagnostics Result Diagram: 07/09/16 0415 07/10/16 0535 Microbiology Urine culture is pending X-Rays, CTs and MRIs PROCEDURE: CT BRAIN (TPA) ([id number]) INDICATIONS: Stroke TECHNIQUE: Noncontrast 4.5 mm thick angled axial sections acquired from the foramen magnum to the vertex, with coronal reformats. COMPARISON: None. FINDINGS: Image quality: Excellent. CSF spaces: Basal cisterns are patent. No extra-axial fluid collections. Ventricles are normal in size and shape. Brain: No midline shift. No intracranial masses or hemorrhage. Ro-white matter interface is normal. Skull and face: Calvarium and visualized facial bones are intact, without suspicious lesions. Sinuses: Visualized sinuses and mastoids are clear. IMPRESSION: 1. No acute intracranial abnormality. 2. Findings discussed with Dr. Sterling on 07.08.16 at 1359 hrs. This study fulfills neurological imaging criteria for inclusion or exclusion of acute stroke therapies based on available published neurological imaging guidelines. Dictated by: Jose Alejandro Wayne M.D. on 07/08/2016 at 13:57 Approved by: Jose Alejandro Wayne M.D. on 07/08/2016 at 14:01 PROCEDURE: X-RAY CHEST, TWO VIEWS ([id number]) INDICATIONS: Chest Pain and TIA Possible aspiration TECHNIQUE: 2 views of the chest were acquired. COMPARISON: [facility], , CHEST 1VW (PORTABLE), 12/01/2011, 12: 55. FINDINGS: Surgical changes and devices: None. Lungs and pleura: No pleural effusions or pneumothorax. Lungs are clear. Mediastinum: Mediastinal contours are normal. Heart size is normal. Bones and chest wall: No suspicious bony abnormalities. Soft tissues appear unremarkable. IMPRESSION: No acute cardiopulmonary disease. Dictated by: Talib Lima [facility] Interpreted: Hortensia To MD on 07/09/2016 at 13:52 Transcribed by: TRACI on 07/09/2016 at 13:52 Approved by: Hortensia To MD, PhD on 07/09/2016 at 15:24 PROCEDURE: MRI STROKE PROTOCOL ([id number]) Pre- and post-contrast brain MRI, non-contrast brain MR angiogram, pre- and postcontrast neck MR angiogram INDICATIONS: Left facial numbness, left leg pain and weakness. TECHNIQUE: Brain: Noncontrast axial T1 spin echo, axial T2 fast spin echo, sagittal and axial FLAIR, coronal T2 fast spin echo, axial gradient echo, axial diffusion and ADC through the brain. After the administration of contrast, axial 3D VIBE of the cranial vasculature and brain. Brain MRA: Non-contrast 3-D time of flight MR angiogram, with multiple maximum- intensity-projection (MIP) reformats performed. Neck MRA: Axial and sagittal TruFISP through the neck. Coronal dynamic MR angiogram during administration of contrast in the arterial and venous phases, with 3-dimenstional tyillrr-qwwdcdtmz-hbyrdrtwjf (MIP) reformats constructed from subtraction images. COMPARISON: [facility], CT, BRAIN (TPA), 07/08/2016, 13:53. FINDINGS: Image quality: Limited by motion artifact. BRAIN: CSF spaces: Ventricles are normal in size and shape. Basal cisterns are patent. No extra-axial fluid collections. Brain: No intracranial bleeds or mass effects. Small, subependymal nodules noted in the lateral ventricles bilaterally. Some ependymal nodules have isointense signal on the T1 and T2-weighted images. No postcontrast enhancement is associated with the lateral ventricle subependymal nodules. No susceptibility weighted abnormality associated with the subependymal nodules. 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 Ro-white matter interface is normal. Diffusion weighted images show no acute ischemic insults. Brainstem appears normal. Normal intravascular flow voids are present. No abnormal intracranial enhancement. Skull and face: Calvarial marrow signal is normal. Orbits appear normal. Sinuses: Sinuses and mastoids are clear. BRAIN MR ANGIOGRAM: Anterior circulation: Intracranial internal carotid arteries are normal in size and enhancement. The flow within the paired anterior cerebral arteries is normal and symmetric. The flow within the middle cerebral arteries is normal and symmetric. The anterior communicating artery is seen. No stenoses, occlusions, or aneurysms. Posterior circulation: The visualized portions of the vertebral arteries demonstrate normal caliber, and join to form a normal appearing basilar artery. The flow within the posterior cerebral arteries is normal and symmetric. No stenoses, occlusions, or aneurysms. NECK MR ANGIOGRAM: Carotids: Great vessels demonstrate a conventional anatomy as they arise from the aortic arch. The origins of the common carotid arteries appear patent. The calibers and courses of both common carotid arteries are normal. The bifurcation regions appear normal bilaterally. The internal carotid arteries demonstrate normal course and caliber. Posterior circulation: The origins of the vertebral arteries appear patent. More superior portions of both vertebral arteries demonstrate normal course and caliber, and join to form a normal appearing basilar artery. Miscellaneous: Subclavian arteries appear patent. Pre-contrast images through the neck show no soft tissue abnormalities. IMPRESSION: BRAIN MRI: 1. No acute intracranial disease process. 2. No areas of acute or chronic infarction. 3. A few, small, scattered, lateral ventricle subependymal nodules with imaging characteristics most compatible with focal, bilateral, periventricular nodular heterotopia. 4. No abnormal intracranial postcontrast enhancement. BRAIN MR ANGIOGRAM: Negative examination. NECK MR ANGIOGRAM: Negative examination. The estimate of stenosis included in the report of the imaging study was calculated using the NASCET method Dictated by: Hortensia To MD, PhD on 07/09/2016 at 13:48 Approved by: Hortensia To MD, PhD on 07/09/2016 at 14:05 Bilateral carotid Dopplers were done and showed: IMPRESSION: 1. Normal carotid ultrasound exam bilaterally. 2. Nonvisualization of vertebral arteries. 3. Elevated left brachial blood pressure. The right brachial blood pressure cannot be obtained because of an IV line. Dictated by: Dee Mercado M.D. on 07/09/2016 at 10:08 Approved by: Dee Mercado M.D. on 07/09/2016 at 10:11 Cardiac Echo Impressions Echocardiogram Report Name: GENARO GALINDO MStudy Date: 07/10/2016 Height: 57 in Hospital Exam Location: [facility] Weight: 132 lb Gender: Female BSA: 1.5 m2 : 1965 Age: 50 yrs BP: 126/82 mmHg Reason For Study: CHEST PAIN, TIA Ordering Physician: Performed By: Pina Hager Referring Physician: DEISY FONG Interpretation Summary The left ventricle is normal in size, wall thickness, and systolic function without any focal wall motion abnormalities. Assessment of diastolic parameters indicates a relaxation abnormality of the left ventricle, consistent with normal filling pressures. The right ventricle is normal in size and function. Right ventricular systolic pressure is estimated to be 17 mmHg plus the clinically estimated CVP which cannot be estimated on this exam. Both atria are normal in size. There is no Doppler evidence for an atrial septal defect. Injection of contrast documented no interatrial shunt. There is mild aortic regurgitation. There is no other significant valvular heart disease. The aortic root is normal size. Assessment & Plan The patient is a pleasant 50-year-old [place] female who began having symptoms 06/24/2016. She went to see Dr. Fong at the [facility] in [place] on . Patient's blood pressure at that time was 164/90. Patient was given metoprolol 25 mg by mouth every 24 hours at that time. Patient went grocery shopping next became dizzy and found that her blood pressure was 184/90. On 513 her blood pressure was 150/100. On 514 she was tired and was found that her blood pressure was 188/100 she then went to the [place] walk-in clinic and they found that her blood pressure was 190/100 tens EKG and blood tests and told her that she had not had a heart attack but told her to go the emergency room and showed the emergency room in [place] and her blood pressure was 204/ 100. Again they did blood tests and x-rays and they gave her a shot of hydralazine IV and her blood pressure went from 190 systolic to 162 systolic. Patient was given hydrochlorothiazide and was sent home to follow-up with her primary care physician. Patient followed up with her primary care physician and her blood pressure was okay. However yesterday she was resting at home so not working is taken the day of work off since 07/06/2015. Patient blood pressure was 168 yesterday and then today was systolic pressure was 173- 180. Her friend Margie is a nurse in [place] at [facility] after her Symptoms she was having and the patient stated she was having chest pain and tightness and dizziness. Patient friend Margie then drove her to [facility] emergency room were blood pressure was found to be 200/100. She complained of left-sided facial numbness and was thought to have left leg weakness. A "code stroke" was called and at that time all of her symptoms resolved. The stroke team at [facility] was contacted and they recommended no TPA therefore the patient was not given any TPA. Patient had an INH stroke scale performed at 1342 with the "code stroke" and the patient in H stroke score was 0.. Patient continued to have chest tightness and chest pain and she was given 1 sublingual nitroglycerin and this not only took care of her chest pain but her blood pressure normalized. An EKG was performed which showed some Q waves in II, III, and F aVF and T-wave inversion in II, III, and F aVF with questionable ST depression in lead [address] Keon Sterling. He reviewed the old EKG from November 2011 and found no significant difference. However, he also Sent the EKG from 2011 and recent EKG to Dr. Gamez, who Is the [employer] continuing education director and Dr. Gamez also agreed that there is no significant difference in comparing the old EKG with the new EKG. The patient had a negative troponin and all of her strokelike symptoms had resolved. Therefore, the patient was brought in under observation to the hospital service. # Chest pain - Patient has EKG changes that appear to be present since November 2011. However , there does appear to be Q waves in inferior leads and inverted T waves in inferior leads. There also appears to be flattening of the T waves in the lateral leads. - Acute coronary syndrome has been ruled out - Rule out angina secondary to hypertension - Rule out atypical chest pain - We will discontinue IV heparin drip. - The echocardiogram was essentially unremarkable. Therefore, we will proceed with a stress test in a.m. # Left-sided facial numbness and possible left leg weakness, present at the time of admission, resolved. - Possibly due to hypertensive urgency with TIA-like symptoms - Rule out CVA or reversible ischemic neurologic deficit - Rule out other such as unusual reaction to urinary tract infection - We will continue her baby aspirin daily. - MR stroke protocol of the brain fails to reveal cause of patient's current symptoms. - The carotid Dopplers were unremarkable. - Check lipid profile shows an elevated triglyceride level and cholesterol level over 200. - We have added a statin to the patient drug regimen. # Hypertensive urgency, present at the time of admission, active and now better controlled however this late afternoon blood pressure was 168/85. Patient may need additional antihypertensive medications. - We will add amlodipine this evening at a small dose of 2.5 mg by mouth daily at bedtime - Patient has had uncontrolled blood pressure since June 24 of this month this despite the addition of metoprolol and hydrochlorothiazide. - We will continue metoprolol and hydrochlorothiazide and closely monitor her blood pressure and add additional control measures as needed. # Urinary tract infection, present at the time of admission. Active secondary to beta strep - Rocephin was started in the emergency room and will change to oral amoxicillin 500 mg by mouth 3 times a day. Disposition: Patient will be here another evening awaiting stress test in a.m. Pain Evaluation: Adequate Pain Control GI Prophylaxis: Proton Pump Inhibitor VTE Prophylaxis: Other (The patient is currently on a heparin drip.) Resuscitation Status: CPR: Attempt Resuscitation JacksonGilbert mckinley MD July 10, 2016 21:27
[2016-07-11 00:33] VITALS: BP 120/74; PULSE 76; RESP 20; O2SAT 97
[2016-07-11 04:29] VITALS: BP 124/78; PULSE 64; RESP 18; O2SAT 95
[2016-07-11 05:37] VITALS: PULSE 81
[2016-07-11] MEDS: Pantoprazole 40 mg ER24 Tablet PO SCH (08:13)
[2016-07-11 08:15] VITALS: PULSE 72
[2016-07-11 09:25] VITALS: BP 119/71; PULSE 65; RESP 18; O2SAT 97
--- NOTE | 2016-07-11 10:04 | NUR ---
Stress test patient off the floor at 0950hrs for stress test.
--- NOTE | 2016-07-11 10:11 | NUR ---
Social Work: Readiness for Discharge D: EMR reviewed. Pt is on day 3 of hospitalization. PT/ST recommend pt to return home with no needs as of 07/09. Pt lives at home with spouse in [place]. SW does not anticipate any discharge needs at this time. Pt likely to discharge home today (per MD) with spouse via POV. SW will continue to follow if needs arise. A: Pt who is independent at baseline. P: Pt to return home with spouse via POV likely today (per MD). SW will continue to follow if needs arise. AKHIL Faust
--- NOTE | 2016-07-11 12:49 | PCM.DIMED ---
Discharge Instructions Date of Service July 11, 2016 Dates of Hospitalization July 08, 2016 at 16:38 Discharge Diagnosis Discharge Diagnosis Chest Pain and Uncontrolled Hypertension Diet Heart Healthy Activity No restrictions (May resume usual activities gradually as tolerated.) Call your provider Fever or Chills, Shortness of breath, Bleeding, Chest pain, Vomitting, Excessive diarrhea, Weakness (unilateral) Patient Instructions Follow-up Provider: Carlos Trujillo DO Follow-up with PCP in: 1 week Gilbert Cancino MD July 11, 2016 12:49
[2016-07-11] MEDS ORDERED: ATOR40TA69 PO (12:53)
[2016-07-11] MEDS ORDERED: AMOX500T2 PO (12:53)
[2016-07-11] MEDS ORDERED: AMLO5TAB2 PO (12:53)
--- NOTE | 2016-07-11 12:54 | PCM.DIMED ---
Discharge Instructions Date of Service July 11, 2016 Dates of Hospitalization July 08, 2016 at 16:38 Discharge Diagnosis Discharge Diagnosis Chest Pain and Uncontrolled Hypertension Diet Heart Healthy Activity No restrictions (May resume usual activities gradually as tolerated.) Call your provider Fever or Chills, Shortness of breath, Bleeding, Chest pain, Vomitting, Excessive diarrhea, Weakness (unilateral) Patient Instructions Follow-up Provider: Tamar Guerrero MD Follow-up with PCP in: 1 week Gilbert Cancino MD July 11, 2016 12:54
--- NOTE | 2016-07-11 13:57 | NUR ---
Social Work: Discharge D: EMR reviewed. Pt is on day 3 of hospitalization. PT/ST recommend pt to return home with no needs as of 07/09. Pt lives at home with spouse in [place]. SW does not anticipate any discharge needs at this time. Pt to discharge home today with spouse via POV. SW will continue to follow if needs arise. A: Pt who is independent at baseline. P: Pt to return home with spouse via POV today. SW will continue to follow if needs arise. AKHIL Faust
[2016-07-11] MEDS ORDERED: BENZ100C8 PO (15:40)
--- NOTE | 2016-07-11 16:04 | NUR ---
Discharge Home discharge instructions, medications and follow-up instructions reviewed with patient and . questions answered at this time. patient verbalized understanding and agreed with plan of care. patient agreed to call PCP office in am to schedule her follow-up. IV DC's cath tip intact.
--- NOTE | 2016-07-12 00:43 | PCM.DC.MED ---
Discharge Summary Date of Service July 11, 2016 Dates of Hospitalization Date of Hospital Admission July 08, 2016 at 16:38 Date of Discharge: July 11, 2016 Providers: Admitting Physician: Gilbert Cancino MD Primary Care Physician: Deisy Fong MD Attending Physician: Gilbert Cancino MD Diagnosis at Time of Discharge Diagnosis at Time of Discharge Chest Pain and Uncontrolled Hypertension Procedures XRay, CTs & MRIs PROCEDURE: CT BRAIN (TPA) ([id number]) INDICATIONS: Stroke TECHNIQUE: Noncontrast 4.5 mm thick angled axial sections acquired from the foramen magnum to the vertex, with coronal reformats. COMPARISON: None. FINDINGS: Image quality: Excellent. CSF spaces: Basal cisterns are patent. No extra-axial fluid collections. Ventricles are normal in size and shape. Brain: No midline shift. No intracranial masses or hemorrhage. Ro-white matter interface is normal. Skull and face: Calvarium and visualized facial bones are intact, without suspicious lesions. Sinuses: Visualized sinuses and mastoids are clear. IMPRESSION: 1. No acute intracranial abnormality. 2. Findings discussed with Dr. Sterling on 07.08.16 at 1359 hrs. This study fulfills neurological imaging criteria for inclusion or exclusion of acute stroke therapies based on available published neurological imaging guidelines. Dictated by: Jose Alejandro Wayne M.D. on 07/08/2016 at 13:57 Approved by: Jose Alejandro Wayne M.D. on 07/08/2016 at 14:01 PROCEDURE: X-RAY CHEST, TWO VIEWS ([id number]) INDICATIONS: Chest Pain and TIA Possible aspiration TECHNIQUE: 2 views of the chest were acquired. COMPARISON: [facility], , CHEST 1VW (PORTABLE), 12/01/2011, 12: 55. FINDINGS: Surgical changes and devices: None. Lungs and pleura: No pleural effusions or pneumothorax. Lungs are clear. Mediastinum: Mediastinal contours are normal. Heart size is normal. Bones and chest wall: No suspicious bony abnormalities. Soft tissues appear unremarkable. IMPRESSION: No acute cardiopulmonary disease. Dictated by: Talib Lima [facility] Interpreted: Hortensia To MD on 07/09/2016 at 13:52 Transcribed by: TRACI on 07/09/2016 at 13:52 Approved by: Hortensia To MD, PhD on 07/09/2016 at 15:24 PROCEDURE: MRI STROKE PROTOCOL ([id number]) Pre- and post-contrast brain MRI, non-contrast brain MR angiogram, pre- and postcontrast neck MR angiogram INDICATIONS: Left facial numbness, left leg pain and weakness. TECHNIQUE: Brain: Noncontrast axial T1 spin echo, axial T2 fast spin echo, sagittal and axial FLAIR, coronal T2 fast spin echo, axial gradient echo, axial diffusion and ADC through the brain. After the administration of contrast, axial 3D VIBE of the cranial vasculature and brain. Brain MRA: Non-contrast 3-D time of flight MR angiogram, with multiple maximum- intensity-projection (MIP) reformats performed. Neck MRA: Axial and sagittal TruFISP through the neck. Coronal dynamic MR angiogram during administration of contrast in the arterial and venous phases, with 3-dimenstional jogrywr-wuvgsxxju-klflquduip (MIP) reformats constructed from subtraction images. COMPARISON: [facility], CT, BRAIN (TPA), 07/08/2016, 13:53. FINDINGS: Image quality: Limited by motion artifact. BRAIN: CSF spaces: Ventricles are normal in size and shape. Basal cisterns are patent. No extra-axial fluid collections. Brain: No intracranial bleeds or mass effects. Small, subependymal nodules noted in the lateral ventricles bilaterally. Some ependymal nodules have isointense signal on the T1 and T2-weighted images. No postcontrast enhancement is associated with the lateral ventricle subependymal nodules. No susceptibility weighted abnormality associated with the subependymal nodules. 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 Ro-white matter interface is normal. Diffusion weighted images show no acute ischemic insults. Brainstem appears normal. Normal intravascular flow voids are present. No abnormal intracranial enhancement. Skull and face: Calvarial marrow signal is normal. Orbits appear normal. Sinuses: Sinuses and mastoids are clear. BRAIN MR ANGIOGRAM: Anterior circulation: Intracranial internal carotid arteries are normal in size and enhancement. The flow within the paired anterior cerebral arteries is normal and symmetric. The flow within the middle cerebral arteries is normal and symmetric. The anterior communicating artery is seen. No stenoses, occlusions, or aneurysms. Posterior circulation: The visualized portions of the vertebral arteries demonstrate normal caliber, and join to form a normal appearing basilar artery. The flow within the posterior cerebral arteries is normal and symmetric. No stenoses, occlusions, or aneurysms. NECK MR ANGIOGRAM: Carotids: Great vessels demonstrate a conventional anatomy as they arise from the aortic arch. The origins of the common carotid arteries appear patent. The calibers and courses of both common carotid arteries are normal. The bifurcation regions appear normal bilaterally. The internal carotid arteries demonstrate normal course and caliber. Posterior circulation: The origins of the vertebral arteries appear patent. More superior portions of both vertebral arteries demonstrate normal course and caliber, and join to form a normal appearing basilar artery. Miscellaneous: Subclavian arteries appear patent. Pre-contrast images through the neck show no soft tissue abnormalities. IMPRESSION: BRAIN MRI: 1. No acute intracranial disease process. 2. No areas of acute or chronic infarction. 3. A few, small, scattered, lateral ventricle subependymal nodules with imaging characteristics most compatible with focal, bilateral, periventricular nodular heterotopia. 4. No abnormal intracranial postcontrast enhancement. BRAIN MR ANGIOGRAM: Negative examination. NECK MR ANGIOGRAM: Negative examination. The estimate of stenosis included in the report of the imaging study was calculated using the NASCET method Dictated by: Hortensia To MD, PhD on 07/09/2016 at 13:48 Approved by: Hortensia To MD, PhD on 07/09/2016 at 14:05 Bilateral carotid Dopplers were done and showed: IMPRESSION: 1. Normal carotid ultrasound exam bilaterally. 2. Nonvisualization of vertebral arteries. 3. Elevated left brachial blood pressure. The right brachial blood pressure cannot be obtained because of an IV line. Dictated by: Dee Mercado M.D. on 07/09/2016 at 10:08 Approved by: Dee Mercado M.D. on 07/09/2016 at 10:11 Cardiac Echo Impression Echocardiogram Report Name: GENARO GALINDO MStudy Date: 07/10/2016 Height: 57 in Hospital Exam Location: [facility] Weight: 132 lb Gender: Female BSA: 1.5 m2 : 1965 Age: 50 yrs BP: 126/82 mmHg Reason For Study: CHEST PAIN, TIA Ordering Physician: Performed By: Pina Hager Referring Physician: DEISY FONG Interpretation Summary The left ventricle is normal in size, wall thickness, and systolic function without any focal wall motion abnormalities. Assessment of diastolic parameters indicates a relaxation abnormality of the left ventricle, consistent with normal filling pressures. The right ventricle is normal in size and function. Right ventricular systolic pressure is estimated to be 17 mmHg plus the clinically estimated CVP which cannot be estimated on this exam. Both atria are normal in size. There is no Doppler evidence for an atrial septal defect. Injection of contrast documented no interatrial shunt. There is mild aortic regurgitation. There is no other significant valvular heart disease. The aortic root is normal size. Brief History The patient is a pleasant 50-year-old Polish female who began having symptoms 06/24/2016. She went to see Dr. Fong at the [facility] in [place] on . Patient's blood pressure at that time was 164/90. Patient was given metoprolol 25 mg by mouth every 24 hours at that time. Patient went grocery shopping next became dizzy and found that her blood pressure was 184/90. On 513 her blood pressure was 150/100. On 514 she was tired and was found that her blood pressure was 188/100 she then went to the [place] [facility] and they found that her blood pressure was 190/100 tens EKG and blood tests and told her that she had not had a heart attack but told her to go the emergency room and showed the emergency room in [place] and her blood pressure was 204/ 100. Again they did blood tests and x-rays and they gave her a shot of hydralazine IV and her blood pressure went from 190 systolic to 162 systolic. Patient was given hydrochlorothiazide and was sent home to follow-up with her primary care physician. Patient followed up with her primary care physician and her blood pressure was okay. However yesterday she was resting at home so not working is taken the day of work off since 07/06/2015. Patient blood pressure was 168 yesterday and then today was systolic pressure was 173- 180. Her friend Margie is a nurse in [place] at [facility] after her Symptoms she was having and the patient stated she was having chest pain and tightness and dizziness. Patient friend Margie then drove her to [facility] emergency room were blood pressure was found to be 200/100. She complained of left-sided facial numbness and was thought to have left leg weakness. A "code stroke" was called and at that time all of her symptoms resolved. The stroke team at [facility] was contacted and they recommended no TPA therefore the patient was not given any TPA. Patient had an INH stroke scale performed at 1342 with the "code stroke" and the patient in H stroke score was 0.. Patient continued to have chest tightness and chest pain and she was given 1 sublingual nitroglycerin and this not only took care of her chest pain but her blood pressure normalized. An EKG was performed which showed some Q waves in II, III, and F aVF and T-wave inversion in II, III, and F aVF with questionable ST depression in lead [address] Keon Sterling. He reviewed the old EKG from November 2011 and found no significant difference. However, he also Sent the EKG from 2011 and recent EKG to Dr. Gamez, who Is the Affiliate Marketing Manager business line controller and Dr. Gamez also agreed that there is no significant difference in comparing the old EKG with the new EKG. The patient had a negative troponin and all of her strokelike symptoms had resolved. Therefore, the patient was brought in under observation to the hospital service. Hospital Course The patient is a pleasant 50-year-old [place] female who began having symptoms 06/24/2016. She went to see Dr. Fong at the [facility] in [place] on . Patient's blood pressure at that time was 164/90. Patient was given metoprolol 25 mg by mouth every 24 hours at that time. Patient went grocery shopping next became dizzy and found that her blood pressure was 184/90. On 513 her blood pressure was 150/100. On 514 she was tired and was found that her blood pressure was 188/100 she then went to the [place] [facility] and they found that her blood pressure was 190/100 tens EKG and blood tests and told her that she had not had a heart attack but told her to go the emergency room and showed the emergency room in [place] and her blood pressure was 204/ 100. Again they did blood tests and x-rays and they gave her a shot of hydralazine IV and her blood pressure went from 190 systolic to 162 systolic. Patient was given hydrochlorothiazide and was sent home to follow-up with her primary care physician. Patient followed up with her primary care physician and her blood pressure was okay. However yesterday she was resting at home so not working is taken the day of work off since 07/06/2015. Patient blood pressure was 168 yesterday and then today was systolic pressure was 173- 180. Her friend Margie is a nurse in [place] at [facility] after her Symptoms she was having and the patient stated she was having chest pain and tightness and dizziness. Patient friend Margie then drove her to [facility] emergency room were blood pressure was found to be 200/100. She complained of left-sided facial numbness and was thought to have left leg weakness. A "code stroke" was called and at that time all of her symptoms resolved. The stroke team at [facility] was contacted and they recommended no TPA therefore the patient was not given any TPA. Patient had an INH stroke scale performed at 1342 with the "code stroke" and the patient in H stroke score was 0.. Patient continued to have chest tightness and chest pain and she was given 1 sublingual nitroglycerin and this not only took care of her chest pain but her blood pressure normalized. An EKG was performed which showed some Q waves in II, III, and F aVF and T-wave inversion in II, III, and F aVF with questionable ST depression in lead [address] Keon Sterling. He reviewed the old EKG from November 2011 and found no significant difference. However, he also Sent the EKG from 2011 and recent EKG to Dr. Gamez, who Is the Affiliate Marketing Manager business line controller and Dr. Gamez also agreed that there is no significant difference in comparing the old EKG with the new EKG. The patient had a negative troponin and all of her strokelike symptoms had resolved. Therefore, the patient was brought in under observation to the hospital service. # Chest pain - Patient has EKG changes that appear to be present since November 2011. However , there does appear to be Q waves in inferior leads and inverted T waves in inferior leads. There also appears to be flattening of the T waves in the lateral leads. - Acute coronary syndrome has been ruled out - Rule out angina secondary to hypertension - Rule out atypical chest pain - We will discontinue IV heparin drip. - The echocardiogram was essentially unremarkable. Therefore, we will proceed with a stress test in a.m. # Left-sided facial numbness and possible left leg weakness, present at the time of admission, resolved. - Possibly due to hypertensive urgency with TIA-like symptoms - Rule out CVA or reversible ischemic neurologic deficit - Rule out other such as unusual reaction to urinary tract infection - We will continue her baby aspirin daily. - MR stroke protocol of the brain fails to reveal cause of patient's current symptoms. - The carotid Dopplers were unremarkable. - Check lipid profile shows an elevated triglyceride level and cholesterol level over 200. - We have added a statin to the patient drug regimen. # Hypertensive urgency, present at the time of admission, active and now better controlled however this late afternoon blood pressure was 168/85. Patient may need additional antihypertensive medications. - We will add amlodipine this evening at a small dose of 2.5 mg by mouth daily at bedtime - Patient has had uncontrolled blood pressure since June 24 of this month this despite the addition of metoprolol and hydrochlorothiazide. - We will continue metoprolol and hydrochlorothiazide and closely monitor her blood pressure and add additional control measures as needed. # Urinary tract infection, present at the time of admission. Active secondary to beta strep - Rocephin was started in the emergency room and will change to oral amoxicillin 500 mg by mouth 3 times a day. Disposition: Patient will be here another evening awaiting stress test in a.m. Exam Vital Signs (Last) Date Time Temp Pulse Resp B/P Pulse Ox O2 Delivery O2 Flow Rate FiO2 07/11/16 09:25 36.6 65 18 119/71 97 Room Air Exam General: Patient is in no apparent distress. She is comfortable lying supine in bed. HEENT: Head is atraumatic and normocephalic. Eyes: Pupils are equally round and reactive to light and accommodation. Extraocular muscles are intact. Sclera are white, anicteric. Subconjunctival mucosa is pink. Ears and nose are unremarkable. Oropharynx: There is no mucosal lesions, there is no thrush, there is no pharyngitis. Patient has upper and lower dentures. Neck: Is supple, there are no nodes, or masses or tenderness. Chest: Is clear to auscultation and percussion. There are no rales, rhonchi, wheezes or rubs. Heart: Rate, rhythm is regular. There is grade 1/6 systolic ejection murmur heard best at the left sternal border. There is no rub or gallop appreciated. Abdomen: Good bowel sounds are present. Abdomen is soft, nontender, no organomegaly or masses were appreciated. Extremities: Are symmetrical and well perfused. There is no edema, there is no cellulitis, no rash. Neurologic: There are no focal neurological deficits. Cranial nerves II through XII are intact. There are no sensory or motor deficits. Psychiatric: Patients mood is calm and she shows no sign of agitation. Genital: Deferred Rectal: Deferred Test 07/08/16 14:00 07/08/16 14:15 07/08/16 14:26 07/09/16 04:15 Prothrombin Time 9.7sec (8.1-12.5) Prothromb Time International Ratio 0.91ratio Hold Poon Top Tube Received (Received) Urine Color Straw (YELLOW) Urine Appearance Hazy (CLEAR,HAZY) Urine pH 6.0 (5.0-8.0) Urine Specific [place] 1.005 (1.003-1.035) Urine Protein Negativemg/dL (NEG,TRACE) Urine Glucose (UA) Negativemg/dL (NEGATIVE) Urine Ketones Negativemg/dL (NEGATIVE) Urine Occult Blood Negative (NEGATIVE) Urine Nitrite Negative (NEGATIVE) Urine Bilirubin Negative (NEGATIVE) Urine Urobilinogen Normalmg/dL (NORMAL) Urine Leukocyte Esterase Negative (NEGATIVE) Urine RBC 0-2/hpf (0-2) Urine WBC 6-10/hpf (0-5) Urine Epithelial Cells Occasional/hpf (NONE-MOD) Urine Crystals None seen (NONE SEEN) Urine Bacteria Moderate/hpf (NONE-FEW) Urine Hyaline Casts None/lpf (NONE) Urine Granular Casts None seen (NONE SEEN) Urine Waxy Casts None seen (NONE SEEN) Urine Red Blood Cell Casts None seen (NONE SEEN) Urine White Blood Cell Casts None seen (NONE SEEN) Urine Mucus None seen (None Seen) Urine Trichomonas None seen (NONE SEEN) Urine Yeast None (NONE SEEN) Urinalysis Comment None Urine Culture Reflexed Indicated White Blood Count 7.1th/mm3 (3.8-10.1) Red Blood Count 5.34mil/mm3 (3.90-5.20) Hemoglobin 16.0g/dL (12.0-15.6) Hematocrit 44.4% (35.0-46.0) Mean Corpuscular Volume 83.1fL (81-100) Mean Corpuscular Hemoglobin 30.0pg (27.0-35.0) Mean Corpuscular Hemoglobin Concent 36.0% (32.0-37.0) Red Cell Distribution Width 12.3% (12.3-15.4) Platelet Count 250bil/L (150-400) Neutrophils (%) (Auto) 62.1% (40-74) Lymphocytes (%) (Auto) 30.3% (14-46) Monocytes (%) (Auto) 6.2% (4-12) Eosinophils (%) (Auto) 1.0% (0-5) Basophils (%) (Auto) 0.3% (0-3) Triglycerides Level 202mg/dL (0-149) Cholesterol Level 206mg/dL (100-199) LDL Cholesterol, Calculated 117.600mg/dL (0-99) VLDL Cholesterol 40.400mg/dL HDL Cholesterol 48mg/dL (>39) Cholesterol/HDL Ratio 4.29 (0.0-4.4) Thyroid Stimulating Hormone (TSH) 3.060uIU/mL (0.450-4.500) Test 07/09/16 10:30 07/09/16 16:41 07/10/16 05:35 Activated Partial Thromboplast Time 45.5sec (22.8-33.0) Troponin T 0.010ug/L (0.0-0.011) Hold Blue Top Tube Received (Received) Hold Herman Top Tube Received (Received) Sodium Level 139mEq/L (134-144) Potassium Level 4.3mEq/L (3.5-5.2) Chloride Level 98mEq/L (97-108) Carbon Dioxide Level 23mmol/L (18-29) Blood Urea Nitrogen 26mg/dL (6-24) Creatinine 0.79mg/dL (0.57-1.00) Estimat Glomerular Filtration Rate 109mL/min (>59) Glucose Level 116mg/dL (60-99) Calcium Level 10.4mg/dL (8.5-10.1) Magnesium Level 2.0mg/dL (1.6-2.6) Total Bilirubin 0.5mg/dL (0.0-1.2) Aspartate Amino Transf (AST/SGOT) 24U/L (0-50) Alanine Aminotransferase (ALT/SGPT) 31U/L (0-32) Alkaline Phosphatase 63U/L (25-150) Total Protein 7.7g/dL (6.4-8.4) Albumin 4.7g/dL (3.4-5.0) Microbiology Results Urine culture is pending Discharge Medications Discharge Medications Amlodipine (Amlodipine) 5 Mg Tablet 2.5 MG PO HS Prescribed by: SOBEIDA CANCINO MD Amoxicillin (Amoxicillin) 500 Mg Tablet 500 MG PO TIDWM Prescribed by: SOBEIDA CANCINO MD Aspirin (Aspirin) 81 Mg Tablet 81 MG PO DAILY (Reported) Atorvastatin Calcium (Atorvastatin Calcium) 40 Mg Tablet 20 MG PO HS Prescribed by: SOBEIDA CANCINO MD Hydrochlorothiazide (Hydrochlorothiazide) 25 Mg Tablet 25 MG PO DAILY (Reported ) Metoprolol Succinate ER (Metoprolol Succinate ER) 25 Mg Tab.er.24h 25 MG PO HS ( Reported) Potassium Chloride (Potassium Chloride) 10 Meq Tab.er.prt 10 MEQ PO DAILY ( Reported) TAKE WITH FOOD As needed Benzonatate (Benzonatate) 100 Mg Capsule 100 MG PO TID PRN PRN For Cough Prescribed by: SOBEIDA CANCINO MD Followup Plan Disposition: Patient is being discharged home. Discharge Diet: Heart Healthy Discharge Activity: No restrictions (May resume usual activities gradually as tolerated.) Follow-up Provider: Tamar Guerrero MD Follow-up with PCP in: 1 week Time spent Time spent on discharging this patient was greater than 35 minutes, over half of which was involved in counseling and coordination of care. Gilbert Cancino MD July 12, 2016 00:43
== END 2016-07-11 16:09 | disposition home or self-care (01) ==
LOC: SED 13:36 → MPC 16:38
PROVIDERS: ADMIT Internal Medicine Infectious Disease; ATTEND Internal Medicine Infectious Disease
DX: R07.9 Chest pain, unspecified (principal); R53.1 Weakness; R20.0 Anesthesia of skin; I16.0 Hypertensive urgency; N39.0 Urinary tract infection, site not specified; R41.82 Altered mental status, unspecified; Z79.82 Long term (current) use of aspirin; Z90.710 Acquired absence of both cervix and uterus
CPT/HCPCS: 36415; 70450; 70549; 70553; 71020; 80053; 80061; 81000; 81025; 82948; 83735; 84443; 84484; 85025; 85610; 85730; 87040; 87086; 87088; 92610; 93005; 93017; 93880; 96361; 96365; 96366; 96375; 96376; 97161; 99291; A9585; C8929; G0378; J0696; J1644; J7050

== ENCOUNTER 2016-07-12 22:20 | Emergency (ER) | payer OTHER ==
[~2016-07-12 22:20] MED LIST: AMLO5TAB2 PO; AMOX500T2 PO; ASPI-973 PO; ATOR40TA69 PO; BENZ100C8 PO; HYDR25TA4 PO; METO25TA99 PO; POTA10TA38 PO
[2016-07-12 22:26] VITALS: BP 188/95; PULSE 84; RESP 20; O2SAT 100
[2016-07-12 22:34] VITALS: BP 157/89
[2016-07-12 23:30] VITALS: BP 155/87; PULSE 79; RESP 15; O2SAT 97
--- NOTE | 2016-07-12 23:31 | ED.REPORT ---
HPI-General Illness Date of Service July 12, 2016 ED Provider: Dk Sky DO A 50 year old female with recently diagnosed hypertension presents to the ED following a hypertensive episode that occurred earlier this morning. Patient recorded home BP at 153 systolic. She also reports experiencing shaking, worsening anxiety, lightheadedness and dizziness. The episode of hypertension occurred immediately following a stressful conversation with her . Patient was recently admitted on 07/18 for chest pain and hypertension. She was discharged yesterday morning. Her recent cardiac workup, stoke workup, and stress test were negative. She recently began taking amlodipine and took her dose just prior to arrival. Patient denies any chest pain. Nursing Notes Stated Complaint: HIGH BLOOD PRESSURE/ANXIETY Chief Complaint: General Complaint Nursing Notes Reviewed: Yes Allergies: Coded Allergies: No Known Allergies (Unverified Allergy, Unknown, 07/12/16) Scheduled Amlodipine (Amlodipine) 5 Mg Tablet 2.5 MG PO HS Amoxicillin (Amoxicillin) 500 Mg Tablet 500 MG PO TIDWM Aspirin (Aspirin) 81 Mg Tablet 81 MG PO DAILY Atorvastatin Calcium (Atorvastatin Calcium) 40 Mg Tablet 20 MG PO HS Hydrochlorothiazide (Hydrochlorothiazide) 25 Mg Tablet 25 MG PO DAILY Metoprolol Succinate ER (Metoprolol Succinate ER) 25 Mg Tab.er.24h 25 MG PO HS Potassium Chloride (Potassium Chloride) 10 Meq Tab.er.prt 10 MEQ PO DAILY TAKE WITH FOOD Scheduled PRN Benzonatate (Benzonatate) 100 Mg Capsule 100 MG PO TID PRN PRN For Cough General Time Seen by MD: 23:28 Chief Complaint Other (Hypertension) Hx Obtained From: Patient Arrived By: Walk-in Sudden in Onset?: No Onset Occurred: 9 - 12 hours ago Symptom Duration: Since onset Associated with: Reports: Dizziness, Denies: Chest pain, Shortness of breath Pertinent Negative: Pt denies other symptoms Recent Healthcare: Recent doctor visit, Recent hospitalization Past Medical History Past Medical History Hypertension Anxiety Past Surgical History None reported Smoking History Never Smoker Social History Other Social History: Good social support, , Local resident Ambulatory Status Independent Review of Systems Hypertension Full Review of Systems Respiratory: Denies: Shortness of breath Cardiovascular: Denies: Chest pain GI: Denies: Abdominal pain, Nausea, Vomiting Neurologic: Reports: Lightheaded, Shaking, Denies: Numbness, Weakness Psychiatric: Reports: Anxiety, Stress Complete sys rev & neg: except as marked. Physical Exam Vital Signs Vital Signs Date Time Temp Pulse Resp B/P Pulse Ox O2 Delivery O2 Flow Rate FiO2 07/12/16 23:51 36.6 83 17 131/84 99 Room Air 07/12/16 23:30 79 15 155/87 97 Room Air 07/12/16 22:34 157/89 07/12/16 22:26 36.3 84 20 188/95 100 Initial VS: Reviewed Neck: Supple, Non-tender, Full range of motion Extremities: Vascular intact, Neuro intact, No swelling, No tenderness Skin: Warm, Dry, No cyanosis General/Constitutional: Awake, Alert, No acute distress Behavior: Positive: Anxious Head / Eyes: Atraumatic, Normocephalic, PERRL Respiratory / Chest: Atraumatic, Breath sounds NL, Breath sounds = bilat, No respiratory distress Cardiovascular: Heart rate NL, Regular rhythm, Heart sounds NL Abdomen: Atraumatic, Soft, Non-tender Interpretation & Diagnostics ECG Interpretation ECG Interpretation: S[place] Rhythm Rate [address] changes No acute changes Interpreted by: ED physician Normal ECG Interpretation: No change from prior ECGs (07/08/16) Re-Eval/Medical Decision Med Decision/Clinical Course Patient's blood pressure has normalized she has no high-risk symptoms or EKG is normal, her workup from admission and discharge from this past week visit was reviewed and reassuring. There is some concern this patient has underlying anxiety from both the patient and her . She was given half a milligram of Ativan in the ER. She is strongly encouraged to follow-up with primary care doctor for further evaluate other causes for hypertension and further discussion in terms of her symptoms. Return and follow-up precautions given. Time of Eval: 23:38 Patient Status: Condition improved Re-Evaluation/Progress Note: Patient is resting comfortably. She is informed of her results. All of her questions about anxiety medication are addressed. EKG is reassuring. Symptoms have improved. BP = 131/84 Counseled Regarding: Diagnosis, Need for follow-up, When/why to return to ED Discharge & Departure Primary Impression: Hypertension Hypertension type: unspecified secondary hypertension Qualified Code: I15.9 - Secondary hypertension, unspecified Disposition: Home Discharge Condition All VS Reviewed: Yes Condition: Improved Patient Instructions: Anxiety (ED), Hypertension (DC) Additional Instructions: Thank you for trusting us with your care this evening. Your emergency department evaluation today is reassuring that there is no dangerous cause for concern at this time and your recent workup and EKG is reassuring as well. Please continue to take blood pressure medication as directed. Schedule a follow up appointment with your primary care physician tomorrow for a recheck. Please return to the emergency department if you begin to experience any new or worsening symptoms including any shortness of breath, chest pain, numbness/ tingling in the lower extremities, fever or vomiting. Referrals: Andriy Fong MD (PCP) [facility] Scribe Attestation Portions of this note were transcribed by Fadi Thomas. I, Dr. Sky personally performed the history, physical exam and medical decision-making; I reviewed and confirmed the accuracy of the information in the transcribed note. Signed by: Barbara Munoz, 07/12/16 [id number]. copies to: Andriy Fong MD, Timothy S DO July 12, 2016 23:31 FADI THOMAS July 12, 2016 23:38
[2016-07-12] MEDS ORDERED: LORazepam 1 mg Tablet PO ONE (23:45)
[2016-07-12 23:51] VITALS: BP 131/84; PULSE 83; RESP 17; O2SAT 99
[2016-07-13 00:10] VITALS: BP 143/81
== END 2016-07-13 00:11 | disposition home or self-care (01) ==
LOC: SED 22:20
DX: I15.9 Secondary hypertension, unspecified (principal); F41.9 Anxiety disorder, unspecified; Z79.82 Long term (current) use of aspirin

== ENCOUNTER 2016-07-30 00:06 | Emergency (ER) | payer OTHER ==
[~2016-07-30] VITALS: Ht 144.8 cm; Wt 65.0 kg
[2016-07-30 00:11] VITALS: BP 182/97; PULSE 70; RESP 16; O2SAT 98
--- NOTE | 2016-07-30 00:22 | ED.REPORT ---
HPI-General Illness Date of Service Jul 30, 2016 ED Provider: Ford Luna DO A 50 year old female with a history of hypertension and anxiety presents to the ED complaining of uncontrolled blood pressure. The pt stopped taking her amlodipine recently under the advisement of her PCP and her blood pressure has been spiking since. She took an amlodipine tonight and is not experiencing any symptoms at this time. The pt is requesting that her medications be reevaluated. Nursing Notes Stated Complaint: HIGH BLOOD PRESSURE Chief Complaint: General Complaint Nursing Notes Reviewed: Yes Allergies: Coded Allergies: No Known Allergies (Unverified Allergy, Unknown, 07/12/16) Scheduled Amlodipine (Amlodipine) 5 Mg Tablet 2.5 MG PO HS Amoxicillin (Amoxicillin) 500 Mg Tablet 500 MG PO TIDWM Aspirin (Aspirin) 81 Mg Tablet 81 MG PO DAILY Atorvastatin Calcium (Atorvastatin Calcium) 40 Mg Tablet 20 MG PO HS Hydrochlorothiazide (Hydrochlorothiazide) 25 Mg Tablet 25 MG PO DAILY Metoprolol Succinate ER (Metoprolol Succinate ER) 25 Mg Tab.er.24h 25 MG PO HS Potassium Chloride (Potassium Chloride) 10 Meq Tab.er.prt 10 MEQ PO DAILY TAKE WITH FOOD Scheduled PRN Benzonatate (Benzonatate) 100 Mg Capsule 100 MG PO TID PRN PRN For Cough General Time Seen by MD: 00:21 Chief Complaint Other (Uncontrolled blood pressure) Hx Obtained From: Patient Arrived By: Walk-in Sudden in Onset?: No Recent Healthcare: Recent doctor visit Similar Sx Previous: No Past Medical History Past Medical History Hypertension Anxiety Past Surgical History Reports: Hysterectomy Smoking History Never Smoker Social History Other Social History: Good social support, , Local resident Ambulatory Status Independent Review of Systems uncontrolled blood pressure Full Review of Systems Respiratory: Denies: Non-productive cough, Shortness of breath Cardiovascular: Denies: Chest pain GI: Denies: Abdominal pain Skin: Denies Rash Complete sys rev & neg: except as marked. Physical Exam Vital Signs Vital Signs Date Time Temp Pulse Resp B/P Pulse Ox O2 Delivery O2 Flow Rate FiO2 07/30/16 02:16 36.6 70 18 149/92 98 Room Air 07/30/16 01:20 68 14 141/86 98 Room Air 07/30/16 00:11 36.2 70 16 182/97 98 Room Air Initial VS: Reviewed General/Constitutional: Awake, Alert Head / Eyes: Atraumatic, Normocephalic, PERRL, EOMI ENT: Atraumatic, Airway patent, Mucous membranes moist Neck: Atraumatic, Supple, Full range of motion Respiratory / Chest: Atraumatic, Breath sounds NL, Breath sounds = bilat, No respiratory distress Cardiovascular: Heart rate NL, Regular rhythm, Heart sounds NL Abdomen: Atraumatic, Soft, Non-tender Back: Atraumatic, Full range of motion Upper Extremities Upper Extremity / MS: Atraumatic, Full range of motion Lower Extremity / Pelvis / MS: Atraumatic, Full range of motion Skin: Atraumatic, Color NL, No rash, Warm, Dry Neurologic: Oriented X3, Speech NL, No motor deficits, No sensory deficits Psychiatric: Affect NL, Mood NL Interpretation & Diagnostics Lab Results Interpretation Result Diagram: 07/30/165 07/30/16 0045 Test 07/30/16 00:45 White Blood Count 6.7th/mm3 (3.8-10.1) Red Blood Count 5.08mil/mm3 (3.90-5.20) Hemoglobin 15.0g/dL (12.0-15.6) Hematocrit 43.1% (35.0-46.0) Mean Corpuscular Volume 84.8fL (81-100) Mean Corpuscular Hemoglobin 29.5pg (27.0-35.0) Mean Corpuscular Hemoglobin Concent 34.8% (32.0-37.0) Red Cell Distribution Width 12.3% (12.3-15.4) Platelet Count 253bil/L (150-400) Neutrophils (%) (Auto) 58.5% (40-74) Lymphocytes (%) (Auto) 30.8% (14-46) Monocytes (%) (Auto) 6.9% (4-12) Eosinophils (%) (Auto) 3.1% (0-5) Basophils (%) (Auto) 0.3% (0-3) Sodium Level 140mEq/L (134-144) Potassium Level 3.5mEq/L (3.5-5.2) Chloride Level 100mEq/L (97-108) Carbon Dioxide Level 21mmol/L (18-29) Blood Urea Nitrogen 19mg/dL (6-24) Creatinine 0.64mg/dL (0.57-1.00) Estimat Glomerular Filtration Rate 140mL/min (>59) Glucose Level 134mg/dL (60-99) Calcium Level 9.5mg/dL (8.5-10.1) Total Bilirubin 0.3mg/dL (0.0-1.2) Aspartate Amino Transf (AST/SGOT) 29U/L (0-50) Alanine Aminotransferase (ALT/SGPT) 46U/L (0-32) Alkaline Phosphatase 66U/L (25-150) Troponin T < 0.010ug/L (0.0-0.011) Total Protein 8.0g/dL (6.4-8.4) Albumin 5.0g/dL (3.4-5.0) Hold Poon Top Tube Received (Received) Pulse Oximetry Interpretation Pulse Oximetry Interpretation: 98% on room air Pulse Oximetry: Pulse Ox normal ECG Interpretation ECG Interpretation: normal sinus rhythm with a rate of 71 probable LVH Time: 00:31 Interpreted by: ED physician Re-Eval/Medical Decision Med Decision/Clinical Course Patient took her evening dose of amlodipine and her blood pressure came down nicely. She had no signs or symptoms consistent with malignant hypertension. No stroke symptoms. No cardiac symptoms. Diagnostics are reassuring. She has had a recent normal extensive workup for [employer] as well as chest pain. She has follow-up on Tuesday. She is going to go back taking her amlodipine. Time of Eval: 01:56 Patient Status: Condition improved Re-Evaluation/Progress Note: Pt rechecked, who is resting. The diagnosis and plan for discharge is discussed. The pt understands and agrees with the plan. All questions are addressed at this time. Counseled Regarding: Diagnosis, Lab results, Need for follow-up, When/why to return to ED Discharge & Departure Primary Impression: Hypertension Hypertension type: essential hypertension Qualified Code: I10 - Essential ( primary) hypertension Disposition: Home Discharge Condition All VS Reviewed: Yes Condition: Stable Patient Instructions: Chronic Hypertension (ED), Hypertension (DC) Additional Instructions: Keep your follow-up appointment for this Tuesday. I think he need to start taking the amlodipine again. However do not take the amlodipine if her blood pressures of her less than 120 systolic. Checked her blood pressure 3 times daily. The laboratory work is all very reassuring. Her kidney function is normal. If you continue to have such extreme fluctuations in her blood pressure you will need to have your medications adjusted. Discuss this at your follow-up. Return if any problems or any new or worsening symptoms. Referrals: Andriy Fong MD (PCP) Barbara Attestation Portions of this note were transcribed by Windy Reese. I, Dr. Luna personally performed the history, physical exam and medical decision-making; I reviewed and confirmed the accuracy of the information in the transcribed note. Signed by: Barbara Camarillo, 07/30/16 and 0204. copies to: Andriy Fong MD, Todd P DO Jul 30, 2016 00:22 WINDY REESE Jul 30, 2016 01:35
[2016-07-30 01:09] LABS: BASOPHILS % (AUTO) 0.3 % (0-3); EOSINOPHILS % (AUTO) 3.1 % (0-5); MONOCYTES % (AUTO) 6.9 % (4-12); Mean Corpuscular Hemoglobin 29.5 pg (27.0-35.0); Mean Corpuscular Volume 84.8 fL (81-100); NEUTROPHILS % (AUTO) 58.5 % (40-74); Platelet Count 253 bil/L (150-400)
[2016-07-30 01:20] VITALS: BP 141/86; PULSE 68; RESP 14; O2SAT 98
[2016-07-30 01:54] LABS: TROPONIN T < 0.010 ug/L (0.0-0.011)
[2016-07-30 02:16] VITALS: BP 149/92; PULSE 70; RESP 18; O2SAT 98
== END 2016-07-30 02:10 | disposition home or self-care (01) ==
LOC: SED 00:06
DX: I10 Essential (primary) hypertension (principal)